=== PATIENT | male | born 1995 | race Hispanic/Latino ===

== ENCOUNTER 2024-06-29 19:51 | Inpatient (IN) | payer OTHER, SELFPAY ==
[2024-06-29 12:56] VITALS: BP 167/94
--- NOTE | 2024-06-29 14:36 | ED.GENMED ---
History of Present Illness
General
Chief Complaint: Abdominal Pain
Source: patient and family (Patients cousin at bedside assisting w/ translation)
Exam Limitations: none
Time Seen by Provider: 06/29/24 14:00
Nursing documentation reviewed up to this point in time: agreed with
History of Present Illness
History of Present Illness:
Patient is a 28-year-old male with history hypertension presenting to the emergency department for evaluation of abdominal pain. Patient reports onset of abdominal pain Thursday which initially started around his umbilicus but it seemed to migrate
down to his right lower quadrant yesterday. He denies any radiation of pain around to his back. He denies any radiation of pain into his groin and denies any testicular pain. He reports a few episodes of vomiting over the past few days and low
appetite. He denies any fever or chills. He denies any urinary symptoms. No history of abdominal surgeries.
No chest pain, shortness of breath, or cough.
Patient denies any history of similar symptoms.
Review of Systems
Review of Systems
Allergies reviewed?: Yes
All Other Systems: ROS reviewed and negative except as documented in HPI and ROS
Phy Exam
Physical Exam
Physical Exam:
Vitals: Hypertensive, otherwise vital signs stable. Afebrile
General: Patient is well appearing, no acute distress. Nontoxic appearing
Skin: Warm and dry, no rashes or lesions
Head: Normocephalic, atraumatic
Eyes: Sclera nonicteric.
Throat: Protecting airway
Neck: Normal ROM, no cervical spine tenderness, no meningismus
Cardiac: Regular rate and rhythm, no murmurs.
Pulm: No respiratory distress. Lungs clear bilaterally
.
Abdomen: Abdomen soft. Moderate tenderness in right lower quadrant McBurney's point. No rebound tenderness or guarding. No CVA tenderness.
Extremities: No evidence of cyanosis or edema
Neuro: AAOx3. Grossly intact.
Psychiatric: Normal affect.
Course
Orders/Labs/Results
Orders:
Orders
06/29/24 14:35
0.9% Sodium Chloride 1000 ml [Nss] 1,000 ml IV BOLUS
Ketorolac [Toradol] 15 mg IV NOW STA
06/29/24 Dinner
NPO
Allow oral meds: Yes
Allow clear liquids: Sips of Clears
NPO with Ice Chips: Yes
06/29/24 15:16
Complete Blood Count/With Diff Urgent
Comprehensive Metabolic Panel Urgent
Lipase Urgent
Urinalysis Reflex To Culture Urgent
Date Specimen was Collected: 06/29/24
Time Specimen was Collected: 15:12
Urine Drug Abuse Screen Urgent
Date Specimen was Collected: 06/29/24
Time Specimen was Collected: 15:12
Urine Microscopic Reflex Cult Urgent
Urine Sodium Urgent
Date Specimen was Collected: 06/29/24
Time Specimen was Collected: 15:12
Comment: ADD ON
Urine Culture Urgent
DEONNA Source: U
Specimen Description:
Date Specimen was Collected: 06/29/24
Time Specimen was Collected: 15:12
06/29/24 16:04
Abdomen/Pelvis wo Contrast CT [CT Abd/pelvis Wo Iv Cont] Urgent
Comment:
Reason For Exam: abdominal pain, ROBERTO
06/29/24 18:20
0.9% Sodium Chloride 1000 ml [Nss] 1,000 ml IV BOLUS
CefTRIAXone [Rocephin] 2,000 mg IV NOW STA
MetroNIDAZOLE 500 MG/100 ML [Flagyl 500 mg] 100 ml IV NOW
06/29/24 19:10
Admit/Transfer Patient As Directed
Co-Sign Provider:
Level of Care: Inpatient admission
Assign to:: Medical/Surgical
Physician / Group: [email or web address]
Diagnosis: ROBERTO, acute appendicitis
Reason for Hospitalization: ROBERTO, acute appendicitis
Expected length of stay greater than two midnights?: Yes
ELOS- Estimated Length of Stay in days: 3
I certify the patient meets the requirements for IP care: Yes
06/29/24 19:12
Code Status As Directed
Resuscitation Status: Full Code
06/29/24 19:16
Basic Metabolic Panel Urgent
Creatine Phosphokinase Urgent
Comment: ADDON
06/29/24 19:28
Add On- LAB Urgent
Tests Added?: CK
06/29/24 20:24
0.9% Sodium Chloride 1000 ml [Nss] 1,000 ml IV 80 mls/hr
Bisacodyl [Dulcolax] 10 mg RECTAL [id number] PRN
Docusate W/Senna [Senokot-S] 1 tablet PO BIDPRN PRN
HYDROmorphone [Dilaudid] 0.5 mg IV Q4HPRN PRN
Polyethylene Glycol Powder [Miralax] 17 grams PO DAILYPRN PRN
06/29/24 20:24
NEPHROLOGY CONSULT Routine
Consulting Provider: Ture Medina
Was physician already notified: Yes
Reason for consult: ROBERTO of unclear origin
Activity As Directed
Activity Level: With Assistance
Intake/ Output As Directed
Frequency: Per unit guidelines
Pneumatic Compression Sleeves As Directed
Type: Knee high
Vital Signs As Directed
Frequency: Per unit guidelines
Weight As Directed
Frequency: Daily
DX Deep Vein Thrombosis Video Routine
06/30/24 06:00
Basic Metabolic Panel IN AM
Complete Blood Count/No Diff IN AM
07/01/24 06:00
Basic Metabolic Panel IN AM
07/02/24 06:00
Basic Metabolic Panel IN AM
07/03/24 06:00
Basic Metabolic Panel IN AM
Abnormal Lab Results
06/29/24 06/29/24
15:16 19:16
RBC 3.88 L 10^6/uL
(4.70-6.10)
Hgb 11.8 L g/dL
(13.0-18.0)
Hct 34.6 L %
(39.0-52.0)
Absolute Neuts (auto) 6.8 H 10^3/uL
(1.4-6.5)
Absolute Monos (auto) 0.7 H 10^3/uL
(0.1-0.6)
Lymphocytes % 17.4 L %
(20.5-51.1)
Chloride 109 H mmol/L 113 H mmol/L
(98-107) (98-107)
Carbon Dioxide 21 L mmol/L 17 L mmol/L
(22-30) (22-30)
BUN 68 H mg/dl 66 H mg/dl
(9-20) (9-20)
Creatinine 7.8 H* mg/dL 7.5 H* mg/dL
(0.7-1.3) (0.7-1.3)
Creatine Kinase 390 H U/L
(55-170)
Ur Occult Blood Reflex 2+ A
(Negative)
Urine Bacteria (Reflex) Moderate A
(Negative)
Urine Albumin (Reflex) 4+ A
(Neg - Trace)
06/29/24 15:16
06/29/24 19:16
Vital Signs
Initial and Last Documented VS:
Initial Vital Signs
Temp Pulse Resp BP Pulse Ox
98.1 F 78 20 167/94 99
06/29/24 12:56 06/29/24 12:56 06/29/24 12:56 06/29/24 12:56 06/29/24 12:56
Last Documented Vital Signs
Temp Pulse Resp BP Pulse Ox
98.6 F 62 18 146/93 98
06/29/24 23:16 06/29/24 23:16 06/29/24 23:16 06/29/24 23:16 06/29/24 23:16
MDM/Problems Addressed
Differential Diagnosis Includes:
Not limited to: Appendicitis, diverticulitis, gastroenteritis, biliary colic, renal colic, etc.
MDM/Problems Addressed:
28 year-old male presenting with two days of right lower abdominal pain associated with anorexia and intermittent vomiting. No fevers or urinary symptoms. No testicular pain. Vitals and physical exam as above. Different differential broad although
patient is tender over McBurney�s point � concern for acute appendicitis. Will obtain basic labs, urinalysis, CT scan abdomen/pelvis with IV contrast. Will give Toradol and IV fluids.
Update: CBC without acute abnormalities. CMP shows acute renal failure with creatinine of 7.8. At this time� patient was bladder scanned, which sh owed no evidence of urinary retention. CT scan was switched to a noncontrast study. Unknown etiology
of renal failure at this time � patient denies any history of this. Will evaluate for a possible obstructive causes on CT scan, other considerations include medication induced although patient denies any recent NSAID use. We�ll hold any further
nephrotoxic agents, including NSAIDs at this time.
Update: CT scan suggestive of acuter uncomplicated appendicitis. No evidence of obstructive uropathy. Started patient on IV Rocephin/Flagyl in ED given PCN allergy. Discussed with general surgery. Plan for OR tomorrow for appendectomy. Patient
admitted to hospitalist for further work up of acute renal failure and nephrology consult. Patient accepted to hospitalist service in stable condition.
Chronic conditions affecting care:
Hypertension
Acute Exacerbation and/or Progression of Chronic Illness:
Acutely hypertensive, acute renal failure
*Radiology
Radiology exam reviewed: radiology read reviewed
*Pulse Oximetry
Patient hypoxic: no
*EKG
Interpreted by ED Provider?: NA
*Director Perioperative Interpretation
Rate: Director Perioperative- N/A
*Critical Care Note
Total Time (30-74mins, 75-104mins- exclusive of procedures): Not Applicable
Patient Management
Discussion with other providers: Hospitalist and Motorized [employer] Commanding Officer (Case discussed with general surgery)
Escalation/DeEscalation of care consider admission/obs:
Admit for acute appendicitis and acute renal failure
ED Attending Note
-
Portions of this chart may have been created with voice recognition software.� Occasional wrong word or��sound alike� substitutions may have occurred due to the inherent limitations of voice recognition software.
Discharge Plan
Departure
Patient Disposition: Admit
Date of Disposition: 06/29/24
Time of Disposition: 18:32
Presentation/result/management discussed w/ accepting MD/DO: Hospitalist
Discharge Problem:
Acute appendicitis, Acute renal failure
Interventions
Interventions:
*Risk Screen - Suicide Last Done: 06/29/24 22:08
*General Assessment Last Done: 06/29/24 12:56
*Neglect/Abuse Screening Last Done: 06/29/24 15:15
*ED- Fall Risk Assessment Last Done: 06/29/24 15:15
*ED COVID-19 Vaccine History Last Done: 06/29/24 22:08
*Nursing Disposition Last Done: 06/29/24 20:10
SI-[facility]turk-Uzijmfmk[facility] Assessment Last Done: 06/29/24 15:15
Discharge Date and Time
Discharge Date/Time: 06/29/24 20:15
[2024-06-29] MEDS: NSS 1000 IV ×3 (15:13→22:21)
[2024-06-29] MEDS: TORADOL 15 MG IV (15:14)
[2024-06-29 15:22] VITALS: BMI 21.8
[2024-06-29 15:32] LABS: Urine Albumin 4+ (Neg - Trace); Urine Bilirubin Negative (Negative); Urine Character Clear (Clear); Urine Color Yellow; Urine Glucose Negative (Negative); Urine Ketone Negative (Negative); Urine Leukocyte Negative (Negative); Urine Nitrite Negative (Negative); Urine Occult Blood 2+ (Negative); Urine Urobilinogen Negative (Neg - 1+)
[2024-06-29 15:35] LABS: % Basophils 0.8 % (0-2); % Eosinophils 3.4 % (0-6); % Immature Granulocytes 0.3 % (0-0.5); % Lymphocytes 17.4 % (20.5-51.1); % Neutrophils 71.1 % (42.2-75.2); Absolute Basophils 0.1 10^3/uL (0-0.2); Absolute Eosinophils 0.3 10^3/uL (0-0.7); Absolute Lymphocytes 1.7 10^3/uL (1.2-3.4); Absolute Monocytes 0.7 10^3/uL (0.1-0.6); Absolute Neutrophils 6.8 10^3/uL (1.4-6.5); Hematocrit 34.6 % (39.0-52.0); Hemoglobin 11.8 g/dL (13.0-18.0); Mean Corp Hgb Conc. 34.1 g/dL (33.0-37.0); Mean Corpuscular Hgb 30.4 pg (27.0-31.0); Mean Corpuscular Volume 89.2 fL (80.0-94.0); Mean Platelet Volume 10.4 fL (7.4-10.4); Nucleated Red Blood Cells % 0 % (-); Platelet Count 223 10^3/uL (130-400); Red Blood Cell Count 3.88 10^6/uL (4.70-6.10); Red Cell Dist. Width 12.6 % (11.5-14.5); White Blood Cell Count 9.6 10^3/uL (4.8-10.8)
[2024-06-29 15:43] VITALS: BP 154/74
[2024-06-29 15:53] LABS: ALT (SGPT) 20 U/L (0-50); AST (SGOT) 17 U/L (17-59); Albumin 4.1 g/dl (3.5-5.0); Alkaline Phosphatase 102 U/L (38-126); Blood Urea Nitrogen 68 mg/dl (9-20); Calcium 9.8 mg/dl (8.4-10.2); Carbon Dioxide 21 mmol/L (22-30); Chloride 109 mmol/L (98-107); Estimated Creatinine Clearance 15 ml/min; Glucose 95 mg/dl (70-99); Lipase 239 U/L (23-300); Potassium 4.5 mmol/L (3.5-5.1); Sodium 141 mmol/L (135-145); Total Bilirubin 0.8 mg/dl (0.2-1.3); Total Protein 7.3 g/dl (6.3-8.2); eGFR 8.94
[2024-06-29 16:18] LABS: Urine Bacteria Moderate (Negative); Urine Red Blood Cell 0-2 /HPF (0-2)
[2024-06-29] MEDS: FLAGYL 500 MG 100 IV (18:30)
--- NOTE | 2024-06-29 18:47 | HPS.HSE ---
Family Physician
-
Family Physician: * NONE
Chief Complaint
-
abdominal pain
History of Present Illness
HPI
28M Non Pashto nut Macedonian speaker pw Cousin Pashto speaker HX HTN seen at ER;
- pw central and Rt lower abdominal pain since Thursday night
- associated with N.
- Vomited once
- HX PCN allergy
- BP 155/75
Admission Labs:
- No urine retention
Cr 7.8
K 4.5
[address] AP wo contrast
- acute appendicitis
- No obstruction
Medical History
Past Medical History
Past Medical History: Reports HTN
Past Surgical History: Reports None
Social History
Tobacco: Non-smoker
Alcohol: Occasional
Family History
Family History: Not pertinent
Allergies / Home Medications
Allergies reflects when Allergies were last updated in [employer].
Home Medications with original date entered in [employer]
Allergy/Medication List:
Allergies
Allergy/AdvReac Type Severity Reaction Status Date / Time
Penicillins Allergy Unknown Verified 06/29/24 12:56
Home Medications
Clortailona 12.5 mg PO DAILY 06/29/24
acetaminophen 325 mg tablet (Tylenol) 650 mg PO Q6HPRN PRN mild pain 06/29/24
atenolol 50 mg tablet 50 mg PO DAILY 06/29/24
felodipine 5 mg tablet,extended release 24 hr 5 mg PO DAILY 06/29/24
Review of Systems
-
Constitutional: Reports No Symptoms
EENT: Reports No Symptoms
Respiratory: Reports No Symptoms
Cardiac: Reports No Symptoms
Abdomen/GI: Reports See HPI, Abdominal Pain, Nausea and Vomiting
: Reports No Symptoms
Musculoskeletal: Reports No Symptoms
Skin: Reports No Symptoms
Neurological: Reports No Symptoms
Endocrine: Reports No Symptoms
Hematologic/Lymphatic: Reports No Symptoms
Psych: Reports No Symptoms
Physical Exam
Vital Signs
Vital Signs
Temp Pulse Resp BP Pulse Ox
98.4 F 68 16 154/74 100
06/29/24 15:43 06/29/24 15:43 06/29/24 15:43 06/29/24 15:43 06/29/24 15:43
Physical Exam
General: Well Developed, Well Nourished and No Apparent Distress
HEENT: NormoCephalic and Atraumatic; No Moist mucous membranes (dry OM )
Respiratory: Clear
Cardiac: S1/S2 and Regular Rhythm; No Murmur or Rub
GI: Soft, Non Tender, Non Distended and Normal Bowel Sounds; No Organomegaly
Rectal: Deferred by Provider
Musculoskeletal: No Clubbing, No Cyanosis and No Edema
Skin: No Rash
Neuro: Nonfocal/grossly intact
Psych: Calm
Laboratory Results
-
06/29/24 15:16
Laboratory Results
Total Bilirubin 0.8 mg/dl (0.2-1.3) 06/29/24 15:16
AST 17 U/L (17-59) 06/29/24 15:16
ALT 20 U/L (0-50) 06/29/24 15:16
Alkaline Phosphatase 102 U/L (38-126) 06/29/24 15:16
Lipase 239 U/L (23-300) 06/29/24 15:16
Data Reviewed
-
CT Scan: Report Reviewed by me
Lab Data: Labs Reviewed by me
Impression/Plan
-
Vital Signs
Temp Pulse Resp BP Pulse Ox
98.4 F 68 16 154/74 100
06/29/24 15:43 06/29/24 15:43 06/29/24 15:43 06/29/24 15:43 06/29/24 15:43
Labs
06/29/24
15:16
WBC 9.6
Hgb 11.8 L
Potassium 4.5
Chloride 109 H
Carbon Dioxide 21 L
BUN 68 H
Creatinine 7.8 H*
Estimated Creat Clear 15
eGFR 8.94
AST 17
ALT 20
Alkaline Phosphatase 102
Ur Occult Blood Reflex 2+ A
Urine RBC 0-2
Urine Bacteria (Reflex) Moderate A
Urine Albumin (Reflex) 4+ A
CT Abd/pelvis Wo Iv Cont
- Findings suggestion acute appendicitis. No evidence of perforation or abscess formation.
- Findings suggestion benign bilateral adrenal hyperplasia
- Moderate fecal material throughout the colon.
- Mild diffuse bladder wall thickening.
- This can be seen with cystitis or bladder outlet obstruction.
NO PRIOR hospitalist admission:
ASSESSMENT & PLAN
ROBERTO of unclear etiology
- Normal K
- HCO3 21
- Non AG MA 10
- No bladder retention
- No CT evidence of obstruction
- Exposure to NSAID
- Ur Na
- Ur Eosinophils
- Hold CLORTAILONA ( Diuretics ? )
- IV NS @ 80 /H
- Trend Cr
- Renal consulted
CT suggest acute appendicitis
HX PCN allergy
- NPO for OR in AM
- Empiric IV CFTZ and Metronidazole
- PRN allergies
Essential HTN
- IV Hydralazine PRN for SBP > 160. DBP > 110
DVT Px: SCD
Full code
IP MS
[2024-06-29 19:00] VITALS: BP 152/87
[2024-06-29] MEDS: ROCEPHIN 2000 MG IV (19:11)
[2024-06-29 19:45] LABS: Blood Urea Nitrogen 66 mg/dl (9-20); Calcium 9.2 mg/dl (8.4-10.2); Carbon Dioxide 17 mmol/L (22-30); Chloride 113 mmol/L (98-107); Estimated Creatinine Clearance 16 ml/min; Glucose 84 mg/dl (70-99); Potassium 4.2 mmol/L (3.5-5.1); Sodium 139 mmol/L (135-145); eGFR 9.37
[2024-06-29 19:50] LABS: Creatine Phosphokinase 390 U/L (55-170)
[2024-06-29 20:00] VITALS: BP 162/79
[2024-06-29 22:07] LABS: Amphetamines Negative (Negative); Barbiturates Negative (Negative); Benzodiazepines Negative (Negative); Buprenorphine Negative (Negative); Cocaine Negative (Negative); Marijuana Negative (Negative); Methadone Negative (Negative); Methamphetamines Negative (Negative); Opiates Negative (Negative); Phencyclidine Negative (Negative); Tricyclic Antidepressants Negative (Negative)
[2024-06-29 22:13] LABS: Urine Sodium 39 mmol/L (30-90)
[2024-06-29] MEDS: DILAUDID 0.5 MG IV (22:22)
[2024-06-29 23:16] VITALS: BP 146/93
[2024-06-30] VITALS (11 sets, daily range): BP systolic 112–143; BP diastolic 61–89; BMI 21.1
[2024-06-30 07:02] LABS: Blood Urea Nitrogen 66 mg/dl (9-20); Carbon Dioxide 16 mmol/L (22-30); Chloride 114 mmol/L (98-107); Estimated Creatinine Clearance 15 ml/min; Glucose 75 mg/dl (70-99); Potassium 4.8 mmol/L (3.5-5.1); Sodium 140 mmol/L (135-145)
[2024-06-30 07:23] LABS: Hematocrit 30.6 % (39.0-52.0); Hemoglobin 10.3 g/dL (13.0-18.0); Mean Corp Hgb Conc. 33.7 g/dL (33.0-37.0); Mean Corpuscular Hgb 30.7 pg (27.0-31.0); Mean Corpuscular Volume 91.1 fL (80.0-94.0); Mean Platelet Volume 10.7 fL (7.4-10.4); Platelet Count 170 10^3/uL (130-400); Red Blood Cell Count 3.36 10^6/uL (4.70-6.10); Red Cell Dist. Width 12.6 % (11.5-14.5); White Blood Cell Count 7.4 10^3/uL (4.8-10.8)
[2024-06-30 08:15] LABS: Anti Streptolysin Negative (Negative)
[2024-06-30 09:40] LABS: Complement C3 124 mg/dl (88-165)
--- NOTE | 2024-06-30 11:43 | W.PN.HOSP.TC ---
Today's Communication/Plan
-
Continue IVF
Assessment / Plan
Assessment / Plan
Impression:
Patient is 28 years old with history of hypertension who came to the ER with abdominal pain found to have uncomplicated acute appendicitis but also acute renal failure, unknown baseline creatinine.
CT abdomen pelvis shows:
Findings suggestion acute appendicitis. No evidence of perforation or abscess formation.
Findings suggestion benign bilateral adrenal hyperplasia
Moderate fecal material throughout the colon.
Mild diffuse bladder wall thickening. This can be seen with cystitis or bladder outlet obstruction
Patient admitted, consult for surgery and nephrology.
Assessment/plan:
Acute renal failure.
Unknown baseline.
Normal potassium and bicarb was 21 on presentation.
Today bicarb is 16
Creatinine at 7.9
Nephrology consulted.
Continue IV fluid hydration (consider sodium bicarb)
No indication for acute dialysis currently.
Updated patient and his cousin at bedside who provide translation.
Metabolic acidosis.
Secondary to renal failure.
IVF
Acute uncomplicated appendicitis
CT abdomen and pelvis showed:
Findings suggestion acute appendicitis. No evidence of perforation or abscess formation.
Surgery consulted.
OR once stable
Normocytic anemia.
Follow-up hemoglobin.
Unknown baseline.
Hypertension.
Hold clortailona (hydrochlorothiazide)
May resume atenolol.
Consider adding Norvasc
CODE STATUS: Full code
DVT prophylaxis: SCDs
Diet: NPO
Family communication: Discussed with family at bedside
Disposition: Continue IVF.
Total time spent on today's encounter was 65 minutes which included time spent in counseling the patient/family regarding diagnosis and treatment plan as listed above, goals of care, and symptom management. Case was discussed with nursing staff,
specialists, and care coordinators/case management. All labs and imaging personally reviewed by me. Remainder the time spent in detailed review of previous records, lab data, imaging, and other medical provider documentation.
Anticipated Discharge: > 48 hours
Subjective/Interval History
-
Date of Service: June 30, 2024
Patient seen and examined at bedside, cousin at bedside provide translation.
Patient denies any chest pain or shortness of breath, still with mild mid abdominal pain, no nausea, no vomiting, no diarrhea or constipation.
Objective Data
-
Labs:
Laboratory Results
06/30/24
05:57
WBC 7.4
Hgb 10.3 L
Hct 30.6 L
Plt Count 170 D
Sodium 140
Potassium 4.8
Chloride 114 H
Carbon Dioxide 16 L
BUN 66 H
Creatinine 7.9 H*
Glucose 75
Calcium 9.0
Vital Signs:
Vital Signs
Temp Pulse Resp BP Pulse Ox
97.7 F 62 18 139/87 100
06/30/24 07:25 06/30/24 07:25 06/30/24 07:25 06/30/24 07:25 06/30/24 07:25
I&O
06/29/24 06/30/24 07/01/24
06:59 06:59 06:59
Intake Total 720 / 720
Balance 720 / 720
Physical Exam
-
General: Well Developed, Well Nourished, No Apparent Distress and Comfortable
HEENT: Normocephalic, Atraumatic, Moist Mucous Membranes, No Ptosis, PERRLA and Nose Appears Normal
Respiratory: Clear to Auscultation and Non Labored Respirations
Cardiac: Regular Rhythm and S1/S2
Breast: Deferred by me
GI: Soft, Nondistended, Normal Bowel Sounds and Tender (mild)
Genito-urinary: No Costovertebral Tender
Musculoskeletal: No Clubbing, No Cyanosis and No Edema
Skin: Warm
Neuro: Awake, Alert, Oriented, AO x 3 and No Motor Deficits
Psych: Calm
Data Reviewed
-
Diagnostic Radiology: Image personally visualized and interpreted and Report Reviewed by me
CT Scan: Image personally visualized and interpreted and Report Reviewed by me
Ultrasound: Image personally visualized and interpreted and Report Reviewed by me
MRI: Image personally visualized and interpreted and Report Reviewed by me
Medical Tests (Nuc Med, Echo etc): Image personally visualized and interpreted and Report Reviewed by me
Labs: Labs Reviewed by me
Old Records: Reviewed
--- NOTE | 2024-06-30 11:59 | CON.GS ---
Consultation
-
Date/Time Consultation Performed: 06/30/24
Requesting Provider: Kalen
Performing Provider: Khari
Reason for Consultation: Acute appendicitis
Medical History
-
Chief Complaint: Abd pain
History of Present Illness:
28M with acute onset abd pain, periumbilical, nonradiating, severe and progressive, waxed and waned initially now more constant. Denies changes to urine/stool Denies f/c. Uzbek speaker, cousin present and helps with translation.
Past Medical History
Past Medical History: HTN
Past Surgical History: Reviewed & Noncontributory
Social History
Tobacco: Non-Smoker
Alcohol: Occasional
Drug: None
Personal: Single
Family History
Family History: Reviewed & Noncontributory
Allergies / Home Medications
Allergy/AdvReac Type Severity Reaction Status Date / Time
Penicillins Allergy Unknown Verified 06/29/24 12:56
�Medication �Instructions �Recorded �Confirmed �Type
Clortailona 12.5 mg PO DAILY 06/29/24 06/29/24 History
acetaminophen 325 mg tablet 650 mg PO Q6HPRN PRN mild pain 06/29/24 06/29/24 History
(Tylenol)
atenolol 50 mg tablet 50 mg PO DAILY 06/29/24 06/29/24 History
felodipine 5 mg tablet,extended 5 mg PO DAILY 06/29/24 06/29/24 History
release 24 hr
Review of Systems
-
A 10 point review of systems was completed, and was negative except as per HPI.
Physical Exam
Vital Signs
Temp Pulse Resp BP Pulse Ox
97.7 F 62 18 139/87 100
06/30/24 07:25 06/30/24 07:25 06/30/24 07:25 06/30/24 07:25 06/30/24 07:25
06/29/24 06/30/24 07/01/24
06:59 06:59 06:59
Actual Weight 74.644 kg
Body Mass Index (BMI) 21.1
Lab Results
06/30/24 05:57
06/30/24 05:57
WBC 7.4 10^3/uL (4.8-10.8) 06/30/24 05:57
Hgb 10.3 g/dL (13.0-18.0) L 06/30/24 05:57
Hct 30.6 % (39.0-52.0) L 06/30/24 05:57
Plt Count 170 10^3/uL (130-400) D 06/30/24 05:57
Abs Immat Gran (auto) 0.0 10^3/uL (0-0.05) 06/29/24 15:16
Neutrophils % 71.1 % (42.2-75.2) 06/29/24 15:16
Physical Exam
General: No Apparent Distress
GI: Soft, Non Distended and Tender (ttp mostly suprapubic region)
Skin: Warm and Dry
Neuro: AO x 3
Psych: Calm
Data Reviewed
-
CT Scan: Image Personally Visualized and interpreted, Report Reviewed by me, Discussed with Physician, Discussed with Patient and Discussed with Family
Labs: Labs Reviewed by me, Discussed with Physician, Discussed with Patient and Discussed with Family
Assessment / Plan
-
28M with acute uncomplicated appendicitis and concurrent ROBERTO
AFVSS, ttp to suprapubic area
No leukocytosis, no shift, Cr 7.9 and trending up, UA with bacteriuria
CT with acutely inflamed appendix, no fecalith, no perforation, no abscess
Plan:
IV abx
Nephrology consult
Surgical planning pending renal w/u
DVT ppx
Ambulate
All other care as per primary team
Will follow
[2024-06-30 12:01] LABS: Protein/creatinine Ratio 3.7; Urine Protein 514 mg/dl
[2024-06-30 12:12] LABS: Body Fluid for Eosinophils No Eosinophils seen
--- NOTE | 2024-06-30 12:53 | W.CON.NEPH ---
Consultation
-
Date/Time Consultation Requested: 06/30/2024 9 AM
Date/Time Consultation Performed: 06/30/2024 12 PM
Requesting Provider: Dr. Higuera
Performing Provider: Dr. Medina
Reason for Consultation: Elevated creatinine
Medical History
-
Chief Complaint: Abdominal pain
History of Present Illness:
This is a 28-year-old gentleman who has come from [place] recently. He has had no significant healthcare issues previously and therefore had not really seen physicians. He does not speak Occitan and translation is offered by a cousin. About 1 year
ago he had developed abdominal pain and had seen a physician in [place]. Nothing had come from the pain but he was noted to be hypertensive. He was referred to cardiology who he had seen once. He was prescribed a triple regimen of Tenoretic and
felodipine. He was told to return if he did not feel better. He did feel better and so never had follow-up. He has never had blood work even with the incident 1 year ago. Prior to admission he developed acute onset of abdominal pain in the
periumbilical and right lower quadrant area. This was on and off and given the severity of the pain you come to the emergency room for evaluation. CT scan without contrast demonstrated an inflamed appendix. Blood work however had shown elevated
creatinine at 7.9 with significant abnormal urine. He also had metabolic acidosis
Past Medical History
Hypertension
Social History
Tobacco: Non-Smoker
Alcohol: Occasional
Family History
No known CKD
Allergies / Home Medications
Allergy/AdvReac Type Severity Reaction Status Date / Time
Penicillins Allergy Unknown Verified 06/29/24 12:56
�Medication �Instructions �Recorded �Confirmed �Type
Clortailona 12.5 mg PO DAILY 06/29/24 06/29/24 History
acetaminophen 325 mg tablet 650 mg PO Q6HPRN PRN mild pain 06/29/24 06/29/24 History
(Tylenol)
atenolol 50 mg tablet 50 mg PO DAILY 06/29/24 06/29/24 History
felodipine 5 mg tablet,extended 5 mg PO DAILY 06/29/24 06/29/24 History
release 24 hr
Review of Systems
-
Abdominal pain as above
All other systems: Negative unless noted
Physical Exam
Vital Signs
Vital Signs
Temp Pulse Resp BP Pulse Ox
97.7 F 62 18 139/87 100
06/30/24 07:25 06/30/24 07:25 06/30/24 07:25 06/30/24 07:25 06/30/24 07:25
Lab Results
WBC 7.4 10^3/uL (4.8-10.8) 06/30/24 05:57
RBC 3.36 10^6/uL (4.70-6.10) L 06/30/24 05:57
Hgb 10.3 g/dL (13.0-18.0) L 06/30/24 05:57
Hct 30.6 % (39.0-52.0) L 06/30/24 05:57
Plt Count 170 10^3/uL (130-400) D 06/30/24 05:57
Sodium 140 mmol/L (135-145) 06/30/24 05:57
Potassium 4.8 mmol/L (3.5-5.1) 06/30/24 05:57
Chloride 114 mmol/L (98-107) H 06/30/24 05:57
Carbon Dioxide 16 mmol/L (22-30) L 06/30/24 05:57
BUN 66 mg/dl (9-20) H 06/30/24 05:57
Creatinine 7.9 mg/dL (0.7-1.3) H* 06/30/24 05:57
eGFR 8.80 06/30/24 05:57
Glucose 75 mg/dl (70-99) 06/30/24 05:57
Calcium 9.0 mg/dl (8.4-10.2) 06/30/24 05:57
Albumin 4.1 g/dl (3.5-5.0) 06/29/24 15:16
CT abdomen and pelvis without contrast 06/29/2024
IMPRESSION: Findings suggestion acute appendicitis. No evidence of perforation or abscess formation.
Findings suggestion benign bilateral adrenal hyperplasia
Moderate fecal material throughout the colon.
Mild diffuse bladder wall thickening. This can be seen with cystitis or bladder outlet obstruction.
Physical Exam
Patient is awake alert oriented and in no distress. Mood and affect were pleasant, insight and judgment were good. Pupils are equal round and reactive to light, extraocular movements are intact, sclera were anicteric. Hearing was normal, ears and
nose are intact. Oropharynx was clear. Neck was supple with trachea midline and no thyromegaly. Heart was regular rate and rhythm without rubs. Lower extremities without edema. Lungs were clear to auscultation bilaterally and with normal
excursion. Abdomen was soft, tender to palpation in periumbilical and right lower quadrant, with normal active bowel sounds, and no hepatosplenomegaly. Skin was without rash and with normal turgor.
Data Reviewed
-
CT Scan: Report Reviewed by me
Labs: Labs Reviewed by me
Assessment/Plan
-
Assessment
Acute appendicitis
Elevated creatinine/ROBERTO
Metabolic acidosis
Proteinuria nephrotic range
Hematuria
Hypertension
Plan
Serologic workup ordered
I suspect that this may be chronic kidney disease rather than acute kidney injury, however there could be an acute component given the acute appendicitis but I suspect that he would be mild contribution
He will require kidney biopsy though this should not be done with acute appendicitis
At this point I would consider him to be chronic kidney disease likely stage V for all intents and purposes in determining a plan for his appendicitis.
He should be able to undergo surgery from a renal standpoint in this vein
May continue IV fluids for now
--- NOTE | 2024-06-30 13:52 | W.PN.UPDATE ---
Update Note
Progress Note Update
Seern and evaluated by Nephrology. Likely CKD5, less likely ROBERTO. Cleared for surgery from renal standpoint. Plan for OR today for lap appy. D/w pt and cousin in detail. Informed consent obtained.
--- NOTE | 2024-06-30 13:56 | CM ---
Patient seen at bedside with cousin on [address] Patient stated via cousin that he lives with his friends in an apartment first floor. Patient was independent of ADL's and IADL's. Patient cousin translated that patient has no PCP and uses the [facility] on
[address] Patient cousin indicated that they would follow up with [facility] and cousin was aware of process of application. CM will continue to follow for discharge planning needs.
Plan; pending medical treatment plan; possible home with no needs
--- NOTE | 2024-06-30 15:13 | W.IMMPOSTOP ---
Surgical Immed Post Op Note
-
Primary Surgeon: Khari
Pre-op Diagnosis: Acute appendicitis
Post-op Diagnosis: Same
Procedure Performed: Laparoscopic appendectomy
Anesthesia Type: GETA
Specimen / Cultures: Appendix
Estimated Blood Loss: 10cc
Complications: None immediate
Operative Findings: Inflamed nonperforated appendix, no pelvic fluid
--- NOTE | 2024-06-30 15:54 | OR.RPT ---
Operative Report
Operative Report
Primary Surgeon: Khari
Pre-op Diagnosis: Acute appendicitis
Post-op Diagnosis: Same
Procedure Performed: Laparoscopic appendectomy
Anesthesia Type: GETA
Specimen / Cultures: Appendix
Estimated Blood Loss: 10cc
Complications: None immediate
Operative Findings: Inflamed nonperforated appendix, no pelvic fluid
Date of Surgery: 06/30/24
Indications: This 28M developed right lower quadrant abdominal pain and on workup was found to have acute appendicitis. He was also found to have elevated creatinine and Nephrology was consulted. They diagnosed CKD5 and cleared him for surgery from
renal standpoint. Laparoscopic appendectomy was elected.
Description of procedure: The patient was placed on the operating table in the supine position. General anesthesia was induced. A time-out was completed verifying correct patient, procedure, site, positioning, and special equipment prior to
beginning this procedure. An orogastric tube was placed. The abdomen was prepped and draped in the usual sterile fashion. A stab incision was made in left upper quadrant and the Veress needle was inserted. Proper position was confirmed by aspiration
and saline meniscus test. The abdomen was insufflated with carbon dioxide to a pressure of 12 mmHg. The patient tolerated insufflation well.
A 5mm optical trocar was then inserted at the left lower quadrant. The laparoscope was inserted and the abdomen inspected. No injuries from initial trocar placement or Veress needle insertion were noted. Additional trocars were then inserted in the
following locations: a 12-mm trocar at the umbilicus and a 5-mm trocar midline in the suprapubic space. The abdomen was inspected and no abnormalities were found. The table was placed in the Trendelenburg position with the right side up. The
appendix was notable inflamed without signs of gangrene or perforation. The tip of the appendix was gently grasped with an atraumatic grasper and retracted toward the patient�s feet and abdominal wall. Omental adhesions were teased away bluntly from
the appendix. This maneuver exposed the appendiceal blood supply which was controlled with the voyant device. Following this, a laparoscopic linear cutting stapler with a 45mm vaughan load was deployed and used to transect the appendix at its base. The
appendix was placed in an endoscopic retrieval bag, removed through the umbilical port, and passed off the table as a specimen.
We then turned our attention to the staple line, which was noted to be hemostatic. Pelvis inspected, no free fluid identified. The umbilical trocar site was closed at the fascial level laparoscopically with 2-0 PDS under direct vision. Secondary
trocars were removed under direct vision and noted to be hemostatic. The laparoscope was withdrawn and the abdomen was allowed to collapse. The skin was closed with subcuticular sutures of 4-0 monocryl and topical skin adhesive. The orogastric tube
was removed.
The patient tolerated the procedure well and was taken to the postanesthesia care unit in stable condition.
[2024-06-30] MEDS: TENORMIN 50 MG PO (17:12)
[2024-06-30] MEDS: SODIUM BICARBONATE 1150 MEQ IV ×2 (17:13→21:51)
[2024-06-30] MEDS: NSS IV (17:26)
[2024-07-01] MEDS: MYLICON 80 MG PO (00:14)
[2024-07-01 03:08] VITALS: BP 122/66
[2024-07-01 06:00] VITALS: BMI 22.0
[2024-07-01 07:07] LABS: Hematocrit 26.9 % (39.0-52.0); Hemoglobin 9.4 g/dL (13.0-18.0); Mean Corp Hgb Conc. 34.9 g/dL (33.0-37.0); Mean Corpuscular Hgb 30.6 pg (27.0-31.0); Mean Corpuscular Volume 87.6 fL (80.0-94.0); Mean Platelet Volume 11.5 fL (7.4-10.4); Platelet Count 179 10^3/uL (130-400); Red Blood Cell Count 3.07 10^6/uL (4.70-6.10); Red Cell Dist. Width 12.2 % (11.5-14.5); White Blood Cell Count 6.6 10^3/uL (4.8-10.8)
[2024-07-01 07:15] VITALS: BP 138/81
[2024-07-01 07:39] LABS: Blood Urea Nitrogen 72 mg/dl (9-20); Calcium 8.6 mg/dl (8.4-10.2); Carbon Dioxide 20 mmol/L (22-30); Chloride 108 mmol/L (98-107); Estimated Creatinine Clearance 16 ml/min; Glucose 132 mg/dl (70-99); Potassium 4.4 mmol/L (3.5-5.1); Sodium 137 mmol/L (135-145); eGFR 9.52
--- NOTE | 2024-07-01 08:12 | W.PN.GS2 ---
Today's Communication / Plan
-
regular diet
Assessment / Plan
-
28 yo male who presented with acute appendicitis now POD #1 lap appi
AFVSS
No leukocytosis
Cr markedly elevated, nephrology following
Doing well from surgical standpoint
--Continue regular diet
--No need for further abx from surgical standpoint
--OOB/Ambulate/Ok to shower
--Analgesics prn, added Tyelnol/oxycodone
--SCDs for VTE ppx
Surgery to follow peripherally, please call with questions/concerns. Outpatient follow up in 2-4 weeks. Updated d/c instructions
Subjective Data
-
Date of Service: July 01, 2024
Patient seen and examined at bedside. Family interpreting at patient's request. Denies n/v. Tolerating diet. Passing flatus, no BM as of yet. Some soreness at incisions.
Objective Data
-
Intake and Output
06/30/24 07/01/24 07/02/24
06:59 06:59 06:59
Intake Total 720 / 720 200 / 200
Balance 720 / 720 200 / 200
Intake:
IV fluids (Total) 720 / 720 200 / 200
NSS 200 / 200
Other:
Number of approximated MODERATE 3
amounts of urine
Vital Signs
Temp Pulse Resp BP Pulse Ox
98.4 F 70 17 122/66 98
07/01/24 03:08 07/01/24 03:08 07/01/24 03:08 07/01/24 03:08 07/01/24 03:08
Lab Results
07/01/24 05:37
07/01/24 05:37
Calcium 8.6 mg/dl (8.4-10.2) 07/01/24 05:37
Total Bilirubin 0.8 mg/dl (0.2-1.3) 06/29/24 15:16
AST 17 U/L (17-59) 06/29/24 15:16
ALT 20 U/L (0-50) 06/29/24 15:16
Alkaline Phosphatase 102 U/L (38-126) 06/29/24 15:16
Total Protein 7.3 g/dl (6.3-8.2) 06/29/24 15:16
Albumin 4.1 g/dl (3.5-5.0) 06/29/24 15:16
Physical Exam
-
NAD
ABD soft, minimal distention, mild incisional tenderness
Incisions clear, dry, intact
[2024-07-01] MEDS: TENORMIN 50 MG PO (08:31)
[2024-07-01] MEDS: SODIUM BICARBONATE 1150 MEQ IV ×2 (08:31→18:30)
[2024-07-01] MEDS: ROXICODONE 5 MG PO (08:32)
--- NOTE | 2024-07-01 10:49 | W.PN.NEPH.PH ---
Today's Communication / Plan
-
follow bmp
can d/c IVFs after current bag completed
Assessment/Plan
-
Assessment
Acute appendicitis
Elevated creatinine/ROBERTO
Metabolic acidosis
Proteinuria nephrotic range
Hematuria
Hypertension
Plan
Creatinine at 7.4 and gradual improvement of metabolic acidosis with alkalized IV fluid
No acute requirement for dialysis at this time
3.7 g of proteinuria
Blood pressure controlled on atenolol
Urine output not recorded
Status post appendectomy
Serologic workup ordered
I suspect that this may be chronic kidney disease rather than acute kidney injury, however there could be an acute component given the acute appendicitis but I suspect that he would be mild contribution
He will require kidney biopsy though this should not be done with acute appendicitis
At this point I would consider him to be chronic kidney disease likely stage V
-
-
Date of Service: July 01, 2024
CC / HPI / ROS
-
Chief Complaint:
ROBERTO/CKD
History of Present Illness:
Creatinine at 7.4
Metabolic acidosis improving with alkaline IV fluid
Hemodynamically stable on atenolol
Status post appendectomy 06/30/2024
Review of Systems:
Nonoliguric no chest pain or shortness of breath
Some minor postoperative abdominal pain
Labs
-
Labs:
WBC 6.6 10^3/uL (4.8-10.8) 07/01/24 05:37
RBC 3.07 10^6/uL (4.70-6.10) L 07/01/24 05:37
Hgb 9.4 g/dL (13.0-18.0) L 07/01/24 05:37
Hct 26.9 % (39.0-52.0) L 07/01/24 05:37
Plt Count 179 10^3/uL (130-400) 07/01/24 05:37
Sodium 137 mmol/L (135-145) 07/01/24 05:37
Potassium 4.4 mmol/L (3.5-5.1) 07/01/24 05:37
Chloride 108 mmol/L (98-107) H 07/01/24 05:37
Carbon Dioxide 20 mmol/L (22-30) L 07/01/24 05:37
BUN 72 mg/dl (9-20) H 07/01/24 05:37
Creatinine 7.4 mg/dL (0.7-1.3) H* 07/01/24 05:37
eGFR 9.52 07/01/24 05:37
Glucose 132 mg/dl (70-99) H 07/01/24 05:37
Calcium 8.6 mg/dl (8.4-10.2) 07/01/24 05:37
Albumin 4.1 g/dl (3.5-5.0) 06/29/24 15:16
Physical Exam
-
Vital Signs:
Vital Signs
Temp Pulse Resp BP Pulse Ox
98.6 F 65 14 138/81 98
07/01/24 07:15 07/01/24 07:15 07/01/24 07:15 07/01/24 07:15 07/01/24 07:15
Cardiovascular:: Regular rate and rhythm
Respiratory:: Bilateral: CTA
Lung Excursion:: Normal
Abdomen:: Soft and Tender
Bowel Sounds:: Decreased
Extremity Edema:: None: Bilateral:
Heredia Catheter: No
[2024-07-01 11:19] VITALS: BP 133/80
--- NOTE | 2024-07-01 11:32 | W.PN.HOSP.TC ---
Today's Communication/Plan
-
Monitor kidney function
Assessment / Plan
Assessment / Plan
Impression:
Patient is 28 years old with history of hypertension who came to the ER with abdominal pain found to have uncomplicated acute appendicitis but also acute renal failure, unknown baseline creatinine.
CT abdomen pelvis shows:
Findings suggestion acute appendicitis. No evidence of perforation or abscess formation.
Findings suggestion benign bilateral adrenal hyperplasia
Moderate fecal material throughout the colon.
Mild diffuse bladder wall thickening. This can be seen with cystitis or bladder outlet obstruction
Patient admitted, consult for surgery and nephrology.
Status post appendectomy.
Nephrology believes this is probably chronic kidney disease stage V.
Assessment/plan:
Acute renal failure.
Possible chronic kidney disease stage V
Unknown baseline.
Normal potassium and bicarb was 21 on presentation.
Bicarb dropped to 16, improved again after bicarb
Creatinine slowly trending down to 7.4
Nephrology consulted. Possible CKD stage V
Discontinue IV fluid and monitor kidney function.
Patient may require renal biopsy.
Metabolic acidosis.
Resolved
Acute uncomplicated appendicitis
Seen by surgery, status post appendectomy
Normocytic anemia.
Follow-up hemoglobin.
Unknown baseline.
Hypertension.
Hold clortailona (hydrochlorothiazide)
resume atenolol.
Consider adding Norvasc
CODE STATUS: Full code
DVT prophylaxis: SCDs
Diet: Regular
Family communication: Discussed with family at bedside
Disposition: Continue IVF.
Total time spent on today's encounter was 65 minutes which included time spent in counseling the patient/family regarding diagnosis and treatment plan as listed above, goals of care, and symptom management. Case was discussed with nursing staff,
specialists, and care coordinators/case management. All labs and imaging personally reviewed by me. Remainder the time spent in detailed review of previous records, lab data, imaging, and other medical provider documentation.
Anticipated Discharge: 24 - 48 hours
Subjective/Interval History
-
Date of Service: July 01, 2024
Patient seen and examined at bedside, cousin at bedside providing translation, denies any chest pain or shortness of breath, complaining of abdominal pain at the site of surgery.
Objective Data
-
Labs:
Laboratory Results
07/01/24
05:37
WBC 6.6
Hgb 9.4 L
Hct 26.9 L
Plt Count 179
Sodium 137
Potassium 4.4
Chloride 108 H
Carbon Dioxide 20 L
BUN 72 H
Creatinine 7.4 H*
Glucose 132 H
Calcium 8.6
Vital Signs:
Vital Signs
Temp Pulse Resp BP Pulse Ox
98.2 F 60 14 133/80 97
07/01/24 11:19 07/01/24 11:19 07/01/24 11:19 07/01/24 11:19 07/01/24 11:19
I&O
06/30/24 07/01/24 07/02/24
06:59 06:59 06:59
Intake Total 720 / 720 200 / 200
Balance 720 / 720 200 / 200
Physical Exam
-
General: Well Developed, Well Nourished, No Apparent Distress and Comfortable
HEENT: Normocephalic, Atraumatic, Moist Mucous Membranes, No Ptosis, PERRLA and Nose Appears Normal
Respiratory: Clear to Auscultation and Non Labored Respirations
Cardiac: Regular Rhythm and S1/S2
Breast: Deferred by me
GI: Soft, Nondistended, Normal Bowel Sounds and Tender (At site of surgery)
Genito-urinary: No Costovertebral Tender
Musculoskeletal: No Clubbing, No Cyanosis and No Edema
Skin: Warm
Neuro: Awake, Alert, Oriented, AO x 3 and No Motor Deficits
Psych: Calm
Data Reviewed
-
Diagnostic Radiology: Image personally visualized and interpreted and Report Reviewed by me
CT Scan: Image personally visualized and interpreted and Report Reviewed by me
Ultrasound: Image personally visualized and interpreted and Report Reviewed by me
MRI: Image personally visualized and interpreted and Report Reviewed by me
Medical Tests (Nuc Med, Echo etc): Image personally visualized and interpreted and Report Reviewed by me
Labs: Labs Reviewed by me
Old Records: Reviewed
--- NOTE | 2024-07-01 14:25 | CM ---
CM following re: discharge planning.
Reviewed pt's chart.
Per CM note yesterday pt is independent with ADL and IADL, lives with a friend, has no insurance and pt will followup at [facility].
[facility].
D/C plan: home with anticipated no needs and will follow up with [facility] clinic.
CM will follow with discharge plan updates as needed.
[2024-07-01 15:10] VITALS: BP 130/77
[2024-07-01 19:29] VITALS: BP 135/80
[2024-07-01 23:05] VITALS: BP 142/91
[2024-07-02 05:23] LABS: ANA, IgG Reflex to HEp-2 None Detected (None Detected)
[2024-07-02 07:25] VITALS: BP 153/94
[2024-07-02 07:42] LABS: Blood Urea Nitrogen 73 mg/dl (9-20); Calcium 8.9 mg/dl (8.4-10.2); Carbon Dioxide 26 mmol/L (22-30); Chloride 105 mmol/L (98-107); Estimated Creatinine Clearance 16 ml/min; Glucose 92 mg/dl (70-99); Sodium 140 mmol/L (135-145); eGFR 9.08
[2024-07-02] MEDS: TENORMIN 50 MG PO (08:09)
[2024-07-02] MEDS: TYLENOL 1000 MG PO (08:09)
[2024-07-02] MEDS: NORVASC 5 MG PO (08:09)
--- NOTE | 2024-07-02 11:13 | W.PN.HOSP.TC ---
Today's Communication/Plan
-
biopsy pending
Assessment / Plan
Assessment / Plan
Impression:
Patient is 28 years old with history of hypertension who came to the ER with abdominal pain found to have uncomplicated acute appendicitis but also acute renal failure, unknown baseline creatinine.
CT abdomen pelvis shows:
Findings suggestion acute appendicitis. No evidence of perforation or abscess formation.
Findings suggestion benign bilateral adrenal hyperplasia
Moderate fecal material throughout the colon.
Mild diffuse bladder wall thickening. This can be seen with cystitis or bladder outlet obstruction
Patient admitted, consult for surgery and nephrology.
Status post appendectomy.
Nephrology believes this is probably chronic kidney disease stage V.
Plan for renal biopsy.
Assessment/plan:
Acute renal failure.
Possible chronic kidney disease stage V
Unknown baseline.
Normal potassium and bicarb was 21 on presentation.
Bicarb dropped to 16, improved again after bicarb
Creatinine slowly trending down to 7.4
Nephrology consulted. Possible CKD stage V
Discontinue IV fluid and monitor kidney function.
Patient may require renal biopsy while inpatient.
Possible next week.
Metabolic acidosis.
Resolved
Acute uncomplicated appendicitis
Seen by surgery, status post appendectomy
Normocytic anemia.
Follow-up hemoglobin.
Unknown baseline.
Hypertension.
Hold clortailona (hydrochlorothiazide)
resume atenolol.
added Norvasc
CODE STATUS: Full code
DVT prophylaxis: SCDs
Diet: Regular
Family communication: Discussed with family at bedside
Disposition: kidney biopsy pending
Total time spent on today's encounter was 65 minutes which included time spent in counseling the patient/family regarding diagnosis and treatment plan as listed above, goals of care, and symptom management. Case was discussed with nursing staff,
specialists, and care coordinators/case management. All labs and imaging personally reviewed by me. Remainder the time spent in detailed review of previous records, lab data, imaging, and other medical provider documentation.
Anticipated Discharge: > 48 hours
Subjective/Interval History
-
Date of Service: July 02, 2024
Patient seen and examined at bedside, cousin at bedside providing translation. Denies any chest pain or shortness of breath, mild abdominal pain, no nausea, no vomiting, no diarrhea or constipation.
Objective Data
-
Labs:
Laboratory Results
07/02/24
05:43
Sodium 140
Potassium 4.0
Chloride 105
Carbon Dioxide 26
BUN 73 H
Creatinine 7.7 H*
Glucose 92
Calcium 8.9
Vital Signs:
Vital Signs
Temp Pulse Resp BP Pulse Ox
97.9 F 62 16 153/94 98
07/02/24 07:25 07/02/24 07:25 07/02/24 07:25 07/02/24 07:25 07/02/24 07:25
I&O
07/01/24 07/02/24 07/03/24
06:59 06:59 06:59
Intake Total 200 / 200 3570 / 3570
Balance 200 / 200 3570 / 3570
Physical Exam
-
General: Well Developed, Well Nourished, No Apparent Distress and Comfortable
HEENT: Normocephalic, Atraumatic, Moist Mucous Membranes, No Ptosis, PERRLA and Nose Appears Normal
Respiratory: Clear to Auscultation and Non Labored Respirations
Cardiac: Regular Rhythm and S1/S2
Breast: Deferred by me
GI: Soft, Nondistended, Normal Bowel Sounds and Tender (At site of surgery)
Genito-urinary: No Costovertebral Tender
Musculoskeletal: No Clubbing, No Cyanosis and No Edema
Skin: Warm
Neuro: Awake, Alert, Oriented, AO x 3 and No Motor Deficits
Psych: Calm
Data Reviewed
-
Diagnostic Radiology: Image personally visualized and interpreted and Report Reviewed by me
CT Scan: Image personally visualized and interpreted and Report Reviewed by me
Ultrasound: Image personally visualized and interpreted and Report Reviewed by me
MRI: Image personally visualized and interpreted and Report Reviewed by me
Medical Tests (Nuc Med, Echo etc): Image personally visualized and interpreted and Report Reviewed by me
Labs: Labs Reviewed by me
Old Records: Reviewed
--- NOTE | 2024-07-02 11:24 | W.PN.NEPH.PH ---
Today's Communication / Plan
-
Follow BMP
No acute dialysis this week
Ideally will undergo renal biopsy early this week
Assessment/Plan
-
Assessment
Acute appendicitis
Elevated creatinine/ROBERTO
Metabolic acidosis
Proteinuria nephrotic range
Hematuria
Hypertension
Plan
Creatinine at 7.7 and improvement of metabolic acidosis with alkalized IV fluid
No acute requirement for dialysis at this time, however I am unsure if patient could leave hospital off of dialysis
3.7 g of proteinuria
Blood pressure controlled on atenolol and amlodipine
Urine output not recorded
Status post appendectomy
Urine eosinophils were negative
PEG negative
Complements normal
ANCA serologies pending
Serologic workup ordered
I suspect that this may be chronic kidney disease rather than acute kidney injury, however there could be an acute component given the acute appendicitis but I suspect that he would be mild contribution
He will require kidney biopsy though this should not be done when he can tolerate prone position during renal biopsy
I would ask general surgery if he would be cleared for renal biopsy early this week
-
-
Date of Service: July 02, 2024
CC / HPI / ROS
-
Chief Complaint:
ROBERTO/CKD
History of Present Illness:
Creatinine at 7.7
Metabolic acidosis improving with alkaline IV fluid
Hemodynamically stable on atenolol and amlodipine
Status post appendectomy 06/30/2024
Review of Systems:
Nonoliguric no chest pain or shortness of breath
Some minor postoperative abdominal pain
Labs
-
Labs:
WBC 6.6 10^3/uL (4.8-10.8) 07/01/24 05:37
RBC 3.07 10^6/uL (4.70-6.10) L 07/01/24 05:37
Hgb 9.4 g/dL (13.0-18.0) L 07/01/24 05:37
Hct 26.9 % (39.0-52.0) L 07/01/24 05:37
Plt Count 179 10^3/uL (130-400) 07/01/24 05:37
Sodium 140 mmol/L (135-145) 07/02/24 05:43
Potassium 4.0 mmol/L (3.5-5.1) 07/02/24 05:43
Chloride 105 mmol/L (98-107) 07/02/24 05:43
Carbon Dioxide 26 mmol/L (22-30) 07/02/24 05:43
BUN 73 mg/dl (9-20) H 07/02/24 05:43
Creatinine 7.7 mg/dL (0.7-1.3) H* 07/02/24 05:43
eGFR 9.08 07/02/24 05:43
Glucose 92 mg/dl (70-99) 07/02/24 05:43
Calcium 8.9 mg/dl (8.4-10.2) 07/02/24 05:43
Albumin 4.1 g/dl (3.5-5.0) 06/29/24 15:16
Physical Exam
-
Vital Signs:
Vital Signs
Temp Pulse Resp BP Pulse Ox
97.9 F 62 16 153/94 98
07/02/24 07:25 07/02/24 07:25 07/02/24 07:25 07/02/24 07:25 07/02/24 07:25
Cardiovascular:: Regular rate and rhythm
Respiratory:: Bilateral: CTA
Lung Excursion:: Normal
Abdomen:: Soft and Tender
Bowel Sounds:: Decreased
Extremity Edema:: None: Bilateral:
Heredia Catheter: No
[2024-07-02 15:10] VITALS: BP 147/97
[2024-07-02 17:48] LABS: Myeloperoxidase Antibody 0 AU/mL (0-19); Serine Protease-3, IgG 0 AU/mL (0-19)
[2024-07-02 23:09] VITALS: BP 150/98
[2024-07-03 06:00] VITALS: BMI 21.7
--- NOTE | 2024-07-03 06:40 | PTCARENOTE ---
Pt does report he is voiding without difficulty, no hematuria.
[2024-07-03 07:25] VITALS: BP 159/100
[2024-07-03 07:51] LABS: INR 1.02; PT 13.7 Sec (11.4-14.6)
[2024-07-03 07:57] LABS: Hematocrit 28.7 % (39.0-52.0); Mean Corp Hgb Conc. 34.8 g/dL (33.0-37.0); Mean Corpuscular Hgb 30.7 pg (27.0-31.0); Platelet Count 178 10^3/uL (130-400); Red Blood Cell Count 3.26 10^6/uL (4.70-6.10); Red Cell Dist. Width 11.8 % (11.5-14.5); White Blood Cell Count 4.9 10^3/uL (4.8-10.8)
[2024-07-03] MEDS: NORVASC 5 MG PO ×2 (08:05→10:50)
[2024-07-03] MEDS: TENORMIN 50 MG PO (08:05)
[2024-07-03 08:19] LABS: Blood Urea Nitrogen 74 mg/dl (9-20); Calcium 9.2 mg/dl (8.4-10.2); Carbon Dioxide 23 mmol/L (22-30); Chloride 108 mmol/L (98-107); Estimated Creatinine Clearance 16 ml/min; Glucose 92 mg/dl (70-99); Potassium 4.6 mmol/L (3.5-5.1); Sodium 140 mmol/L (135-145); eGFR 9.52
[2024-07-03 09:45] VITALS: BP 160/101
--- NOTE | 2024-07-03 10:23 | W.PN.NEPH.PH ---
Today's Communication / Plan
-
Escalate amlodipine to 10 mg
Would favor renal biopsy on Thursday if cleared by surgery re: appendectomy
Assessment/Plan
-
Assessment
Acute appendicitis
Elevated creatinine/ROBERTO
Metabolic acidosis
Proteinuria nephrotic range
Hematuria
Hypertension
Plan
Creatinine at 7.4
No acute requirement for dialysis at this time, however I am unsure if patient could leave hospital off of dialysis
3.7 g of proteinuria
Will escalate amlodipine from 5 to 10 mg in addition to atenolol for uncontrolled hypertension
Urine output not recorded
Status post appendectomy
Urine eosinophils were negative
PEG negative
Complements normal
ANCA serologies negative
I suspect that this may be chronic kidney disease rather than acute kidney injury, however there could be an acute component given the acute appendicitis but I suspect that he would be mild contribution
He will require kidney biopsy though this should not be done when he can tolerate prone position during renal biopsy
I would ask general surgery if he would be cleared for renal biopsy early this week (Thursday)
-
-
Date of Service: July 03, 2024
CC / HPI / ROS
-
Chief Complaint:
ROBERTO/CKD
History of Present Illness:
Creatinine at 7.4
Metabolic acidosis improved status post alkaline IV fluid
Hemodynamically stable on atenolol and amlodipine
Status post appendectomy 06/30/2024
Review of Systems:
Nonoliguric no chest pain or shortness of breath
Some minor postoperative abdominal pain
Labs
-
Labs:
WBC 4.9 10^3/uL (4.8-10.8) 07/03/24 06:59
RBC 3.26 10^6/uL (4.70-6.10) L 07/03/24 06:59
Hgb 10.0 g/dL (13.0-18.0) L 07/03/24 06:59
Hct 28.7 % (39.0-52.0) L 07/03/24 06:59
Plt Count 178 10^3/uL (130-400) 07/03/24 06:59
Sodium 140 mmol/L (135-145) 07/03/24 06:59
Potassium 4.6 mmol/L (3.5-5.1) 07/03/24 06:59
Chloride 108 mmol/L (98-107) H 07/03/24 06:59
Carbon Dioxide 23 mmol/L (22-30) 07/03/24 06:59
BUN 74 mg/dl (9-20) H 07/03/24 06:59
Creatinine 7.4 mg/dL (0.7-1.3) H* 07/03/24 06:59
eGFR 9.52 07/03/24 06:59
Glucose 92 mg/dl (70-99) 07/03/24 06:59
Calcium 9.2 mg/dl (8.4-10.2) 07/03/24 06:59
Albumin 4.1 g/dl (3.5-5.0) 06/29/24 15:16
Physical Exam
-
Vital Signs:
Vital Signs
Temp Pulse Resp BP Pulse Ox
98.4 F 65 16 160/101 99
07/03/24 07:25 07/03/24 09:45 07/03/24 07:25 07/03/24 09:45 07/03/24 07:25
Cardiovascular:: Regular rate and rhythm
Respiratory:: Bilateral: CTA
Lung Excursion:: Normal
Abdomen:: Soft and Tender
Bowel Sounds:: Decreased
Extremity Edema:: None: Bilateral:
Heredia Catheter: No
--- NOTE | 2024-07-03 11:18 | W.PN.HOSP.TC ---
Today's Communication/Plan
-
Biopsy pending
Assessment / Plan
Assessment / Plan
Impression:
Patient is 28 years old with history of hypertension who came to the ER with abdominal pain found to have uncomplicated acute appendicitis but also acute renal failure, unknown baseline creatinine.
CT abdomen pelvis shows:
Findings suggestion acute appendicitis. No evidence of perforation or abscess formation.
Findings suggestion benign bilateral adrenal hyperplasia
Moderate fecal material throughout the colon.
Mild diffuse bladder wall thickening. This can be seen with cystitis or bladder outlet obstruction
Patient admitted, consult for surgery and nephrology.
Status post appendectomy.
Nephrology believes this is probably chronic kidney disease stage V.
Plan for renal biopsy (possible Thursday)
Assessment/plan:
Acute renal failure.
Possible chronic kidney disease stage V
Unknown baseline.
Normal potassium and bicarb was 21 on presentation.
Bicarb dropped to 16, improved again after bicarb
Creatinine slowly trending down to 7.4
Nephrology consulted. Possible CKD stage V
Discontinue IV fluid and monitor kidney function.
Patient may require renal biopsy while inpatient.
Possible next week.
Metabolic acidosis.
Resolved
Acute uncomplicated appendicitis
Seen by surgery, status post appendectomy
Normocytic anemia.
Follow-up hemoglobin.
Unknown baseline.
Hypertension.
Hold clortailona (hydrochlorothiazide)
resume atenolol.
added Norvasc---> increased from 5 mg to 10 mg.
CODE STATUS: Full code
DVT prophylaxis: SCDs
Diet: Regular
Family communication: Discussed with family at bedside
Disposition: kidney biopsy pending
Total time spent on today's encounter was 65 minutes which included time spent in counseling the patient/family regarding diagnosis and treatment plan as listed above, goals of care, and symptom management. Case was discussed with nursing staff,
specialists, and care coordinators/case management. All labs and imaging personally reviewed by me. Remainder the time spent in detailed review of previous records, lab data, imaging, and other medical provider documentation.
Anticipated Discharge: > 48 hours
Subjective/Interval History
-
Date of Service: July 03, 2024
Patient seen and examined at bedside, cousin at bedside providing translation. Denies any chest pain or shortness of breath, mild abdominal pain, no nausea, no vomiting, no diarrhea or constipation.
Objective Data
-
Labs:
Laboratory Results
07/03/24
06:59
WBC 4.9
Hgb 10.0 L
Hct 28.7 L
Plt Count 178
PT 13.7
INR 1.02
Sodium 140
Potassium 4.6
Chloride 108 H
Carbon Dioxide 23
BUN 74 H
Creatinine 7.4 H*
Glucose 92
Calcium 9.2
Vital Signs:
Vital Signs
Temp Pulse Resp BP Pulse Ox
98.4 F 65 16 160/101 99
07/03/24 07:25 07/03/24 09:45 07/03/24 07:25 07/03/24 09:45 07/03/24 07:25
I&O
07/02/24 07/03/24 07/04/24
06:59 06:59 06:59
Intake Total 3570 / 3570 1830
Balance 3570 / 3570 1830
Physical Exam
-
General: Well Developed, Well Nourished, No Apparent Distress and Comfortable
HEENT: Normocephalic, Atraumatic, Moist Mucous Membranes, No Ptosis, PERRLA and Nose Appears Normal
Respiratory: Clear to Auscultation and Non Labored Respirations
Cardiac: Regular Rhythm and S1/S2
Breast: Deferred by me
GI: Soft, Nondistended, Normal Bowel Sounds and Tender (At site of surgery)
Genito-urinary: No Costovertebral Tender
Musculoskeletal: No Clubbing, No Cyanosis and No Edema
Skin: Warm
Neuro: Awake, Alert, Oriented, AO x 3 and No Motor Deficits
Psych: Calm
Data Reviewed
-
Diagnostic Radiology: Image personally visualized and interpreted and Report Reviewed by me
CT Scan: Image personally visualized and interpreted and Report Reviewed by me
Ultrasound: Image personally visualized and interpreted and Report Reviewed by me
MRI: Image personally visualized and interpreted and Report Reviewed by me
Medical Tests (Nuc Med, Echo etc): Image personally visualized and interpreted and Report Reviewed by me
Labs: Labs Reviewed by me
Old Records: Reviewed
[2024-07-03 15:03] VITALS: BP 142/92
--- NOTE | 2024-07-03 15:04 | PTCARENOTE ---
Received pt from [facility], pt ambulated self into new bed, AAOx3, VSS, pt oriented to call angel and room. Pt resting comfortably in bed with friend at bedside, language line within reach.
[2024-07-03 23:07] VITALS: BP 145/96
[2024-07-04 06:00] VITALS: BMI 21.6
[2024-07-04 07:16] VITALS: BP 146/95
[2024-07-04 07:45] LABS: Blood Urea Nitrogen 77 mg/dl (9-20); Calcium 9.4 mg/dl (8.4-10.2); Carbon Dioxide 23 mmol/L (22-30); Chloride 108 mmol/L (98-107); Estimated Creatinine Clearance 16 ml/min; Glucose 91 mg/dl (70-99); Potassium 5.3 mmol/L (3.5-5.1); Sodium 139 mmol/L (135-145); eGFR 9.52
[2024-07-04 07:46] LABS: Hematocrit 29.8 % (39.0-52.0); Hemoglobin 10.2 g/dL (13.0-18.0); Mean Corp Hgb Conc. 34.2 g/dL (33.0-37.0); Mean Corpuscular Hgb 30.2 pg (27.0-31.0); Mean Corpuscular Volume 88.2 fL (80.0-94.0); Mean Platelet Volume 10.8 fL (7.4-10.4); Platelet Count 196 10^3/uL (130-400); Red Blood Cell Count 3.38 10^6/uL (4.70-6.10); Red Cell Dist. Width 11.8 % (11.5-14.5); White Blood Cell Count 5.1 10^3/uL (4.8-10.8)
[2024-07-04] MEDS: NORVASC 10 MG PO (08:13)
[2024-07-04] MEDS: TENORMIN 50 MG PO (08:14)
[2024-07-04 09:16] LABS: Glucose - Point of Care 82 mg/dl (70-99)
[2024-07-04] MEDS: NOVOLIN R 0.1 UNITS IV (09:22)
[2024-07-04] MEDS: DEXTROSE 50% SYRINGE 25 GRAMS IV ×2 (09:25→22:40)
[2024-07-04 10:34] LABS: Glucose - Point of Care 155 mg/dl (70-99)
[2024-07-04 11:27] LABS: Glucose - Point of Care 81 mg/dl (70-99)
[2024-07-04 11:45] VITALS: BP 137/86
[2024-07-04 13:33] LABS: Glucose - Point of Care 82 mg/dl (70-99)
[2024-07-04 15:51] LABS: Glucose - Point of Care 89 mg/dl (70-99)
--- NOTE | 2024-07-04 15:51 | W.PN.NEPH.PH ---
Today's Communication / Plan
-
tentative k biopsy tomorrow
Assessment/Plan
-
Assessment
Acute appendicitis
Elevated creatinine/ROBERTO
Metabolic acidosis
Proteinuria nephrotic range
Hematuria
Hypertension
Plan
Creatinine at 7.4 no change but BUN has been increasing trend
mild hyperkalemia today -reviewed low k diet
No acute requirement for dialysis at this time, however I am unsure if patient could leave hospital off of dialysis
3.7 g of proteinuria, non oliguric with out story
Bp stable on meds- amlodipine and atenolol, HCTZ on hold
Status post appendectomy on 06/30
Urine eosinophils were negative
PEG negative
Complements normal
ANCA serologies negative
I suspect that this may be chronic kidney disease rather than acute kidney injury, however there could be an acute component given the acute appendicitis but I suspect that he would be mild contribution
He will require kidney biopsy though this should not be done when he can tolerate prone position during renal biopsy
I would ask general surgery if he would be cleared for renal biopsy early this week (Thursday)
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
If not he will travel back to [place] and take care of it. He has 1 yr old kid back at home
d/w nursing
-
-
Date of Service: July 04, 2024
CC / HPI / ROS
-
Chief Complaint:
ROBERTO/CKD
History of Present Illness:
Creatinine at 7.4, no change , k was at 5.3, repeat at 5.
Hemodynamically stable on atenolol and amlodipine
Status post appendectomy 06/30/2024
Review of Systems:
Nonoliguric no chest pain or shortness of breath
no n/v
no other complaints
no dysuria
Labs
-
Labs:
WBC 5.1 10^3/uL (4.8-10.8) 07/04/24 06:06
RBC 3.38 10^6/uL (4.70-6.10) L 07/04/24 06:06
Hgb 10.2 g/dL (13.0-18.0) L 07/04/24 06:06
Hct 29.8 % (39.0-52.0) L 07/04/24 06:06
Plt Count 196 10^3/uL (130-400) 07/04/24 06:06
eGFR 9.52 07/04/24 06:06
Albumin 4.1 g/dl (3.5-5.0) 06/29/24 15:16
Physical Exam
-
Vital Signs:
Vital Signs
Temp Pulse Resp BP Pulse Ox
98.3 F 65 16 137/86 98
07/04/24 11:45 07/04/24 11:45 07/04/24 11:45 07/04/24 11:45 07/04/24 11:45
Cardiovascular:: Regular rate and rhythm
Respiratory:: Bilateral: CTA
Lung Excursion:: Normal
Abdomen:: Nontender and Soft
Extremity Edema:: None: Bilateral:
Story Catheter: No
[2024-07-04 15:52] VITALS: BP 145/92
--- NOTE | 2024-07-04 16:13 | W.PN.HOSP.TC ---
Addendum entered and electronically signed by Loco Linares MD 07/05/24 14:20:
28 male history of hypertension presenting with abdominal pain found to have acute appendicitis and was taken to the OR with surgery for lap appendectomy. However, was also found to have renal failure with a creatinine of 7.8 that came down to 7.4
and has been steady.
Acute kidney injury on chronic kidney disease stage IV versus progressive CKD stage IV with nephrotic range proteinuria
PEG negative
Complements normal
ASO negative
No urine eosinophil
Need to monitor urinary output closely
Avoid nephrotoxins hypotension
Fortunately does not require emergent hemodialysis but I do agree with nephrology that it is unlikely that he will be discharged from the hospital with out requiring hemodialysis
For renal biopsy on Thursday if cleared by surgery to lay prone
Hyperkalemia
I have asked nephrology if I could potentially provide him with Lewis, hesitant as he is recently post op intra-abdominal surgery with a lap appendectomy on 06/30
Will temporize for now though until able to get definitive answer
Acute appendicitis
S/p lap appendectomy on 06/30
Hypertension
Continue amlodipine and atenolol
Normocytic anemia
Hemoglobin stable without evidence of acute active bleeding
Original Note:
Today's Communication/Plan
-
Follow BMP
Kidney biopsy pending
Monitor blood pressure
Assessment / Plan
Assessment / Plan
Impression:
Who patient is a 28-year-old male with past medical history of hypertension. He is from [place] and did not have a regular primary care physician. He was taking triple regimen with atenolol thiazide and calcium channel jazmine to control blood
pressure. Denies any personal or family history of any kidney issues. A CT abdomen was done in the ER, consistent with acute appendicitis. There was also mild benign bilateral adrenal hyperplasia and diffuse thickening of bladder wall. In
addition the patient's GFR came back to be less than 15 with a creatinine of 7.7 for which workup of acute kidney injury versus chronic kidney disease was started.
Currently patient has had laparoscopic appendectomy and is recovering well. His workup for kidney disease is being followed up by nephrology. PEG negative, ANCA negative, complement levels normal. Urine analysis without any eosinophils but with
nephrotic range proteinuria.
Nephrology suspect stage V kidney disease rather than acute kidney injury. Kidney biopsy to be done tomorrow on 07/05
Assessment/plan:
ROBERTO versus chronic kidney disease stage V
Unknown baseline.
As per the patient, never had any personal or family history of kidney issues
On presentation potassium was normal and bicarb was normal, developed metabolic acidosis, corrected with alkaline fluids
Serum creatinine stable at 7.4, slight elevation in potassium levels this morning, treated with insulin and dextrose
Nephrology consult appreciated----suspect chronic kidney disease rather than acute kidney injury, GFR less than 15, nephrotic range proteinuria, kidney biopsy planned for tomorrow
Repeat BMP in evening to assess serum potassium
Metabolic acidosis.
Resolved
Acute uncomplicated appendicitis
S/p laparoscopic appendectomy
Incisions healing well
Normocytic anemia.
Hemoglobin stable at 10
Continue to monitor
Hypertension.
Patient is on atenolol 50 mg daily and amlodipine 10 mg daily
Blood pressure stable around 140
Continue to monitor
CODE STATUS: Full code
DVT prophylaxis: SCDs
Diet: Regular
Anticipated Discharge: 24 - 48 hours
Subjective/Interval History
-
Date of Service: July 04, 2024
Denies any active issues, feeling well, incision healing okay
Objective Data
-
Labs:
Laboratory Results
07/04/24 07/04/24 07/04/24
06:06 11:37 18:00
WBC 5.1
Hgb 10.2 L
Hct 29.8 L
Plt Count 196
Sodium 139 Pending
Potassium 5.3 H 5.0 Pending
Chloride 108 H Pending
Carbon Dioxide 23 Pending
BUN 77 H Pending
Creatinine 7.4 H* Pending
Glucose 91 Pending
Calcium 9.4 Pending
Vital Signs:
Vital Signs
Temp Pulse Resp BP Pulse Ox
98.6 F 63 16 145/92 99
07/04/24 15:52 07/04/24 15:52 07/04/24 15:52 07/04/24 15:52 07/04/24 15:52
I&O
07/03/24 07/04/24 07/05/24
06:59 06:59 06:59
Intake Total 1830 1840 / 184
Output Total 1150 / 1150
Balance 1830 690 / 690
Review of Systems
-
All other systems: Reviewed and negative
Physical Exam
-
General: Well Developed, Well Nourished and Other (Primarily Kazakh-speaking, cousin present on bedside to help with translation)
HEENT: Other (Facial swelling, periorbital edema)
Respiratory: Negative Wheezes, Rales or Rhonchi
Cardiac: Regular Rhythm and S1/S2
GI: Soft, Nontender, Normal Bowel Sounds and Other (Incisions healing well)
Musculoskeletal: No Clubbing, No Cyanosis and No Edema
Skin: Warm and Dry
Neuro: Awake and Oriented
Psych: Calm
--- NOTE | 2024-07-04 16:17 | CM ---
CM met with Sudhakar and his family member Lola Lawton; provided Lola with the [facility] application.
CM to follow up tomorrow with Lola to obtain the completed application.
Plan for renal biopsy tomorrow; family is anxious for the results, hoping dialysis will not be needed.
[2024-07-04 18:51] LABS: Blood Urea Nitrogen 79 mg/dl (9-20); Calcium 9.3 mg/dl (8.4-10.2); Carbon Dioxide 22 mmol/L (22-30); Chloride 107 mmol/L (98-107); Estimated Creatinine Clearance 17 ml/min; Glucose 130 mg/dl (70-99); Potassium 5.2 mmol/L (3.5-5.1); Sodium 137 mmol/L (135-145); eGFR 10.18
[2024-07-04 19:10] VITALS: BP 137/88
[2024-07-04 20:04] VITALS: BP 147/91
[2024-07-04 22:38] LABS: Glucose - Point of Care 77 mg/dl (70-99)
[2024-07-04] MEDS: NOVOLIN R 0.05 UNITS IV (22:40)
[2024-07-04 23:12] VITALS: BP 150/95
[2024-07-04 23:41] LABS: Glucose - Point of Care 116 mg/dl (70-99)
[2024-07-05 00:54] LABS: Glucose - Point of Care 77 mg/dl (70-99)
[2024-07-05 03:03] LABS: Glucose - Point of Care 90 mg/dl (70-99)
[2024-07-05 03:07] VITALS: BP 127/80
[2024-07-05 04:53] LABS: Glucose - Point of Care 85 mg/dl (70-99)
[2024-07-05 05:26] LABS: Hematocrit 30.7 % (39.0-52.0); Hemoglobin 10.7 g/dL (13.0-18.0); Mean Corp Hgb Conc. 34.9 g/dL (33.0-37.0); Mean Corpuscular Hgb 29.6 pg (27.0-31.0); Mean Platelet Volume 10.6 fL (7.4-10.4); Platelet Count 197 10^3/uL (130-400); Red Blood Cell Count 3.61 10^6/uL (4.70-6.10); Red Cell Dist. Width 11.6 % (11.5-14.5)
[2024-07-05 06:00] VITALS: BMI 21.2
[2024-07-05 07:10] VITALS: BP 137/76
[2024-07-05 07:33] LABS: Blood Urea Nitrogen 76 mg/dl (9-20); Calcium 9.8 mg/dl (8.4-10.2); Carbon Dioxide 20 mmol/L (22-30); Chloride 107 mmol/L (98-107); Estimated Creatinine Clearance 17 ml/min; Glucose 77 mg/dl (70-99); Potassium 5.3 mmol/L (3.5-5.1); Sodium 139 mmol/L (135-145); eGFR 10.35
[2024-07-05] MEDS: NORVASC 10 MG PO (07:46)
[2024-07-05] MEDS: TENORMIN 50 MG PO (07:46)
[2024-07-05] MEDS: LOKELMA 5 GRAM PO (10:07)
[2024-07-05 12:00] VITALS: BP 154/86
[2024-07-05] MEDS: SODIUM BICARBONATE 650 MG PO (12:25)
--- NOTE | 2024-07-05 13:17 | W.PN.HOSP.TC ---
Addendum entered and electronically signed by Loco Linares MD 07/05/24 14:22:
28 male history of hypertension presenting with abdominal pain found to have acute appendicitis and was taken to the OR with surgery for lap appendectomy. However, was also found to have renal failure with a creatinine of 7.8 that came down to 7.4
and has been steady.
Acute kidney injury on chronic kidney disease stage IV versus progressive CKD stage IV with nephrotic range proteinuria
PEG negative
Complements normal
ASO negative
No urine eosinophil
Need to monitor urinary output closely
Avoid nephrotoxins hypotension
Fortunately does not require emergent hemodialysis but I do agree with nephrology that it is unlikely that he will be discharged from the hospital with out requiring hemodialysis
For renal biopsy on Thursday if cleared by surgery to lay prone
Hyperkalemia
Temporize, low K diet, Lokelma, Tele pack
Acute appendicitis
S/p lap appendectomy on 06/30
Hypertension
Continue amlodipine and atenolol
Normocytic anemia
Hemoglobin stable without evidence of acute active bleeding
Original Note:
Today's Communication/Plan
-
Kidney biopsy today
Continue to monitor bicarb and potassium levels
Follow nephro recommendations regarding CKD
Assessment / Plan
Assessment / Plan
Impression:
Who patient is a 28-year-old male with past medical history of hypertension. He is from [place] and did not have a regular primary care physician. He was taking triple regimen with atenolol thiazide and calcium channel jazmine to control blood
pressure. Denies any personal or family history of any kidney issues. A CT abdomen was done in the ER, consistent with acute appendicitis. There was also mild benign bilateral adrenal hyperplasia and diffuse thickening of bladder wall. In
addition the patient's GFR came back to be less than 15 with a creatinine of 7.7 for which workup of acute kidney injury versus chronic kidney disease was started.
Currently patient has had laparoscopic appendectomy and is recovering well. His workup for kidney disease is being followed up by nephrology. PEG negative, ANCA negative, complement levels normal. Urine analysis without any eosinophils but with
nephrotic range proteinuria.
Nephrology suspect stage V kidney disease rather than acute kidney injury. Kidney biopsy to be done tomorrow on 07/05
Assessment/plan:
ROBERTO versus chronic kidney disease stage V
Unknown baseline.
As per the patient, never had any personal or family history of kidney issues
On presentation potassium was normal and bicarb was normal, developed metabolic acidosis, corrected with alkaline fluids
Nephrology consult appreciated----suspect chronic kidney disease rather than acute kidney injury, GFR less than 15, nephrotic range proteinuria, kidney biopsy planned for today
Developing metabolic acidosis
Replete bicarb as per KDIGO guidelines
Monitor
Hyperkalemia
Lokelma Per oral stat
Monitor potassium levels-manage accordingly
Acute uncomplicated appendicitis
S/p laparoscopic appendectomy
Incisions healing well
Normocytic anemia.
Hemoglobin stable at 10
Continue to monitor
Hypertension.
Patient is on atenolol 50 mg daily and amlodipine 10 mg daily
Blood pressure stable around 140
Continue to monitor
CODE STATUS: Full code
DVT prophylaxis: SCDs
Anticipated Discharge: 24 - 48 hours
Subjective/Interval History
-
Date of Service: July 05, 2024
No active issues, feels fine, no shortness of breath and is producing urine
Objective Data
-
Labs:
Laboratory Results
07/05/24 07/05/24 07/05/24
00:28 05:15 05:21
WBC 7.0
Hgb 10.7 L
Hct 30.7 L
Plt Count 197
Sodium 139
Potassium Cancelled 5.3 H
Chloride 107
Carbon Dioxide 20 L
BUN 76 H
Creatinine 6.9 H*
Glucose 77
Calcium 9.8
Vital Signs:
Vital Signs
Temp Pulse Resp BP Pulse Ox
98.8 F 66 16 154/86 100
07/05/24 12:00 07/05/24 12:00 07/05/24 12:00 07/05/24 12:00 07/05/24 12:00
I&O
07/04/24 07/05/24 07/06/24
06:59 06:59 06:59
Intake Total 1840 / 1840 900 / 900
Output Total 1150 / 1150 2630 / 2630
Balance 690 / 690 -1730 / -1730
Review of Systems
-
All other systems: Reviewed and negative
Physical Exam
-
General: No Apparent Distress, Comfortable, Conversant and Other (Primarily Ukrainian-speaking, cousin present on bedside to help with translation)
HEENT: Moist Mucous Membranes and Other
Respiratory: Clear to Auscultation; Negative Wheezes, Rales or Rhonchi
Cardiac: Regular Rhythm and S1/S2
GI: Soft, Nontender, Nondistended and Normal Bowel Sounds
Musculoskeletal: No Clubbing, No Cyanosis and No Edema
Skin: Warm and Dry
Neuro: Awake, Oriented and Nonfocal/Grossly Intact
Psych: Calm
[2024-07-05 14:45] VITALS: BP 137/87
--- NOTE | 2024-07-05 15:07 | CM ---
CM following re: discharge planning.
Reviewed pt's chart, met with pt and pt's friend at bedside.
Per chart review, kidney biopsy today, suspected stage V kidney disease.
Per previous CM note yesterday pt is independent with ADL and IADL, lives with a friend, has no insurance and pt will followup at [facility].
[facility] specialist following.
D/C plan: home with his friend. Pt might need outpatient HD treatment.
CM will follow with discharge plan updates as needed.
--- NOTE | 2024-07-05 15:39 | W.PN.NEPH.PH ---
Today's Communication / Plan
-
follow labs
K biopsy tomorrow
Assessment/Plan
-
Assessment
Acute appendicitis
Elevated creatinine/ROBERTO
Metabolic acidosis
Proteinuria nephrotic range
Hematuria
Hypertension
Plan
Creatinine better at 6.9, mild improvement of bun
mild hyperkalemia today -reviewed low k diet, s/p Lokelma
No acute requirement for dialysis at this time, however I am unsure if patient could leave hospital off of dialysis unless cr sig improvement
3.7 g of proteinuria, non oliguric with out story
Bp stable on meds- amlodipine and atenolol, HCTZ on hold
Status post appendectomy on 06/30
Urine eosinophils were negative
PEG negative
Complements normal
ANCA serologies negative
I suspect that this may be chronic kidney disease rather than acute kidney injury, however there could be an acute component given the acute appendicitis but I suspect that he would be mild contribution
He will require kidney biopsy arranged tomorrow
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
If not he will travel back to [place] and take care of it. He has 1 yr old kid back at home
-
-
Date of Service: July 05, 2024
CC / HPI / ROS
-
Chief Complaint:
ROBERTO/CKD
History of Present Illness:
Creatinine down to 6.9, k was at 5.3
Hemodynamically stable on atenolol and amlodipine
Status post appendectomy 06/30/2024
Review of Systems:
Nonoliguric no chest pain or shortness of breath
no n/v
no other complaints
no dysuria
Labs
-
Labs:
WBC 7.0 10^3/uL (4.8-10.8) 07/05/24 05:15
RBC 3.61 10^6/uL (4.70-6.10) L 07/05/24 05:15
Hgb 10.7 g/dL (13.0-18.0) L 07/05/24 05:15
Hct 30.7 % (39.0-52.0) L 07/05/24 05:15
Plt Count 197 10^3/uL (130-400) 07/05/24 05:15
eGFR 10.35 07/05/24 05:21
Albumin 4.1 g/dl (3.5-5.0) 06/29/24 15:16
Physical Exam
-
Vital Signs:
Vital Signs
Temp Pulse Resp BP Pulse Ox
98.1 F 67 16 137/87 97
07/05/24 14:45 07/05/24 14:45 07/05/24 14:45 07/05/24 14:45 07/05/24 14:45
Cardiovascular:: Regular rate and rhythm
Respiratory:: Bilateral: CTA
Lung Excursion:: Normal
Abdomen:: Nontender and Soft
Extremity Edema:: None: Bilateral:
Story Catheter: No
[2024-07-05 15:51] LABS: Blood Urea Nitrogen 77 mg/dl (9-20); Calcium 9.5 mg/dl (8.4-10.2); Carbon Dioxide 20 mmol/L (22-30); Chloride 107 mmol/L (98-107); Estimated Creatinine Clearance 17 ml/min; Glucose 206 mg/dl (70-99); Potassium 4.8 mmol/L (3.5-5.1); Sodium 135 mmol/L (135-145); eGFR 10.01
[2024-07-05 19:15] VITALS: BP 122/78
[2024-07-05 23:10] VITALS: BP 132/80
[2024-07-06 06:33] LABS: % Eosinophils 8.6 % (0-6); % Immature Granulocytes 0.3 % (0-0.5); % Lymphocytes 32.8 % (20.5-51.1); % Monocytes 8.4 % (1.7-9.3); % Neutrophils 48.9 % (42.2-75.2); Absolute Basophils 0.1 10^3/uL (0-0.2); Absolute Eosinophils 0.5 10^3/uL (0-0.7); Absolute Monocytes 0.5 10^3/uL (0.1-0.6); Hematocrit 31.8 % (39.0-52.0); Hemoglobin 10.9 g/dL (13.0-18.0); Mean Corp Hgb Conc. 34.3 g/dL (33.0-37.0); Mean Corpuscular Hgb 29.6 pg (27.0-31.0); Mean Corpuscular Volume 86.4 fL (80.0-94.0); Mean Platelet Volume 10.5 fL (7.4-10.4); Nucleated Red Blood Cells % 0 % (-); Platelet Count 210 10^3/uL (130-400); Red Blood Cell Count 3.68 10^6/uL (4.70-6.10); Red Cell Dist. Width 11.8 % (11.5-14.5); White Blood Cell Count 6.2 10^3/uL (4.8-10.8)
[2024-07-06 07:10] VITALS: BP 127/79
[2024-07-06 07:22] LABS: Blood Urea Nitrogen 83 mg/dl (9-20); Calcium 9.6 mg/dl (8.4-10.2); Carbon Dioxide 19 mmol/L (22-30); Chloride 108 mmol/L (98-107); Estimated Creatinine Clearance 16 ml/min; Glucose 87 mg/dl (70-99); Magnesium 1.9 mg/dl (1.6-2.3); Potassium 5.5 mmol/L (3.5-5.1); Sodium 137 mmol/L (135-145); eGFR 9.68
[2024-07-06] MEDS: TENORMIN PO (09:57)
[2024-07-06] MEDS: NORVASC 10 MG PO (10:07)
[2024-07-06 10:29] VITALS: BMI 21.1
--- NOTE | 2024-07-06 10:34 | PTCARENOTE ---
IR called to floor and notified this RN that patient will not get renal biopsy today d/t scheduling. MD and resident made aware, patient made aware per casket liner. 2g K diet order entered per resident. K 5.5 this AM, this RN communicated with MD
and residentLewis ordered per resident. Scheduled PO atenolol held per resident d/t HR sinus beny in high 50s on tele monitor.
[2024-07-06 11:00] VITALS: BP 137/82
--- NOTE | 2024-07-06 11:07 | W.PN.NEPH.PH ---
Today's Communication / Plan
-
bicarb
Assessment/Plan
-
Assessment
Acute appendicitis
Elevated creatinine/ROBERTO
Metabolic acidosis
Proteinuria nephrotic range
Hematuria
Hypertension
Plan
follow BMP
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
lokelid course
add bicarb
bx tomorrow
no emergent HD needs currently, but will likely need HD in the near future.
This is more a logistical issue. He need insurance and CM assistance. 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
If not he will travel back to [place] and take care of it. He has 1 yr old kid back at home
-
-
Date of Service: July 06, 2024
CC / HPI / ROS
-
Chief Complaint:
ROBERTO/CKD
History of Present Illness:
Creatinine up to 7.3, K 5.5
Hemodynamically stable on atenolol and amlodipine
Status post appendectomy 06/30/2024
Review of Systems:
Nonoliguric no chest pain or shortness of breath
no n/v
no other complaints
no dysuria
Labs
-
Labs:
WBC 6.2 10^3/uL (4.8-10.8) 07/06/24 05:59
RBC 3.68 10^6/uL (4.70-6.10) L 07/06/24 05:59
Hgb 10.9 g/dL (13.0-18.0) L 07/06/24 05:59
Hct 31.8 % (39.0-52.0) L 07/06/24 05:59
Plt Count 210 10^3/uL (130-400) 07/06/24 05:59
Sodium 137 mmol/L (135-145) 07/06/24 05:59
Potassium 5.5 mmol/L (3.5-5.1) H 07/06/24 05:59
Chloride 108 mmol/L (98-107) H 07/06/24 05:59
Carbon Dioxide 19 mmol/L (22-30) L 07/06/24 05:59
BUN 83 mg/dl (9-20) H 07/06/24 05:59
Creatinine 7.3 mg/dL (0.7-1.3) H* 07/06/24 05:59
eGFR 9.68 07/06/24 05:59
Glucose 87 mg/dl (70-99) 07/06/24 05:59
Calcium 9.6 mg/dl (8.4-10.2) 07/06/24 05:59
Albumin 4.1 g/dl (3.5-5.0) 06/29/24 15:16
Physical Exam
-
Vital Signs:
Vital Signs
Temp Pulse Resp BP Pulse Ox
98.2 F 57 18 127/79 99
07/06/24 07:10 07/06/24 10:07 07/06/24 07:10 07/06/24 10:07 07/06/24 07:10
Cardiovascular:: Regular rate and rhythm
Respiratory:: Bilateral: CTA
Lung Excursion:: Normal
Abdomen:: Nontender and Soft
Bowel Sounds:: Normal
Extremity Edema:: None: Bilateral:
[2024-07-06] MEDS: SODIUM BICARBONATE 650 MG PO ×2 (11:42→20:16)
--- NOTE | 2024-07-06 11:51 | CM ---
CM following re: discharge planning.
Reviewed pt's chart, met with pt and pt's sister at bedside.
Per Pension Agent, no emergent HD needs currently, but will likely need HD in the near future. 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 He
has 1 yr old kid back at home
Per previous CM note yesterday pt is independent with ADL and IADL, lives with a friend, has no insurance and pt will follow up at [facility].
HRSI specialist following.
D/C plan: home with his friend.
CM will follow with discharge plan updates as needed.
[2024-07-06] MEDS: LOKELMA 5 GRAM PO ×2 (13:35→17:06)
--- NOTE | 2024-07-06 14:12 | W.PN.HOSP.TC ---
Addendum entered and electronically signed by Loco Linares MD 07/07/24 14:43:
28 male history of hypertension presenting with abdominal pain found to have acute appendicitis and was taken to the OR with surgery for lap appendectomy. However, was also found to have renal failure with a creatinine of 7.8 that came down to 7.4
and has been steady.
Acute kidney injury on chronic kidney disease stage IV versus progressive CKD stage IV with nephrotic range proteinuria
PEG negative
Complements normal
ASO negative
No urine eosinophil
Need to monitor urinary output closely - urinating well/normal
Avoid nephrotoxins hypotension
Fortunately does not require emergent hemodialysis but I do agree with nephrology that it is unlikely that he will be discharged from the hospital with out requiring hemodialysis
For renal biopsy pushed to following day due to scheduling
Hyperkalemia to 5.2
Temporize, low K diet, Lokelma 10mg qd, Tele pack
Acute appendicitis
S/p lap appendectomy on 06/30
Hypertension
Continue amlodipine and atenolol
Normocytic anemia
Hemoglobin stable without evidence of acute active bleeding
Original Note:
Today's Communication/Plan
-
Renal biopsy tomorrow
Continue to monitor potassium levels
Avoid nephrotoxins
Assessment / Plan
Assessment / Plan
Impression:
Who patient is a 28-year-old male with past medical history of hypertension. He is from [place] and did not have a regular primary care physician. He was taking triple regimen with atenolol thiazide and calcium channel jazmine to control blood
pressure. Denies any personal or family history of any kidney issues. A CT abdomen was done in the ER, consistent with acute appendicitis. There was also mild benign bilateral adrenal hyperplasia and diffuse thickening of bladder wall. In
addition the patient's GFR came back to be less than 15 with a creatinine of 7.7 for which workup of acute kidney injury versus chronic kidney disease was started.
Patient had laparoscopic appendectomy on June 30, 2024 and is recovering well. His workup for kidney disease is being followed up by nephrology. PEG negative, ANCA negative, complement levels normal. Urine analysis without any eosinophils but with
nephrotic range proteinuria.
Admitted for workup of elevated creatinine/ROBERTO, hyperkalemia, metabolic acidosis, nephrotic range proteinuria, hematuria and hypertension.
Nephrology suspect stage V kidney disease rather than acute kidney injury. Kidney biopsy pending.
Assessment/plan:
ROBERTO versus chronic kidney disease stage V
Unknown baseline.
As per the patient, never had any personal or family history of kidney issues
On presentation potassium was normal and bicarb was normal, developed metabolic acidosis, corrected with alkaline fluids
Nephrology consult appreciated----suspect chronic kidney disease rather than acute kidney injury, GFR less than 15, nephrotic range proteinuria, kidney biopsy pending
Patient is producing urine, but would require dialysis in near future, nephrology on board, suggested that he might need renal transplant as well and he needs to work on his insurance with the correctional casework specialist.
Hyperkalemia
Lokelma daily
Monitor potassium levels
Low potassium diet
Acute uncomplicated appendicitis
S/p laparoscopic appendectomy
Incisions healing well
Normocytic anemia.
Hemoglobin stable at 10
Continue to monitor
Hypertension.
Patient is on atenolol 50 mg daily and amlodipine 10 mg daily
Blood pressure stable around 140
Continue to monitor
CODE STATUS: Full code
DVT prophylaxis: SCDs
Anticipated Discharge: 24 - 48 hours
Subjective/Interval History
-
Date of Service: July 06, 2024
No active issues, was n.p.o. in the morning for biopsy, got delayed, started on low potassium diet
Objective Data
-
Labs:
Laboratory Results
07/06/24
05:59
WBC 6.2
Hgb 10.9 L
Hct 31.8 L
Plt Count 210
Sodium 137
Potassium 5.5 H
Chloride 108 H
Carbon Dioxide 19 L
BUN 83 H
Creatinine 7.3 H*
Glucose 87
Calcium 9.6
Vital Signs:
Vital Signs
Temp Pulse Resp BP Pulse Ox
99 F 59 16 137/82 100
07/06/24 11:00 07/06/24 11:00 07/06/24 11:00 07/06/24 11:00 07/06/24 11:00
I&O
07/05/24 07/06/24 07/07/24
06:59 06:59 06:59
Intake Total 900 / 900 1200 / 1200
Output Total 2630 / 2630 1725 / 1725
Balance -1730 / -1730 -525 / -525
Review of Systems
-
All other systems: Reviewed and negative
Physical Exam
-
General: No Apparent Distress, Comfortable, Conversant and Other (Periorbital edema)
HEENT: Moist Mucous Membranes and Anicteric
Respiratory: Clear to Auscultation; Negative Wheezes, Rales or Rhonchi
Cardiac: Regular Rhythm and S1/S2; Negative Murmur, Rub or Gallop
GI: Soft, Nontender, Nondistended and Normal Bowel Sounds
Musculoskeletal: No Clubbing, No Cyanosis and No Edema
Skin: Warm and Dry
Neuro: Awake, Oriented and Nonfocal/Grossly Intact
Psych: Calm
[2024-07-06 15:00] VITALS: BP 130/81
[2024-07-06 19:00] VITALS: BP 129/75
[2024-07-06 23:31] VITALS: BP 134/83
[2024-07-07] VITALS (10 sets, daily range): BP systolic 65–138; BP diastolic 64–79; BMI 21.1
[2024-07-07 06:11] LABS: Hematocrit 30.8 % (39.0-52.0); Hemoglobin 11.1 g/dL (13.0-18.0); Mean Corpuscular Hgb 30.9 pg (27.0-31.0); Mean Corpuscular Volume 85.8 fL (80.0-94.0); Mean Platelet Volume 10.3 fL (7.4-10.4); Platelet Count 209 10^3/uL (130-400); Red Blood Cell Count 3.59 10^6/uL (4.70-6.10); Red Cell Dist. Width 11.7 % (11.5-14.5); White Blood Cell Count 6.8 10^3/uL (4.8-10.8)
[2024-07-07 06:35] LABS: Blood Urea Nitrogen 90 mg/dl (9-20); Calcium 9.6 mg/dl (8.4-10.2); Carbon Dioxide 19 mmol/L (22-30); Chloride 107 mmol/L (98-107); Estimated Creatinine Clearance 15 ml/min; Glucose 89 mg/dl (70-99); Phosphorus 7.9 mg/dl (2.5-4.5); Potassium 5.2 mmol/L (3.5-5.1); Sodium 138 mmol/L (135-145); eGFR 9.08
[2024-07-07] MEDS: LOKELMA 5 GRAM PO ×2 (06:54→09:21)
--- NOTE | 2024-07-07 07:27 | W.PN.HOSP.TC ---
Today's Communication/Plan
-
Renal biopsy today
Monitor potassium levels, patient, and Lokelma 10 mg daily
Monitor bicarb level
Manage electrolyte derangement
Assessment / Plan
Assessment / Plan
Impression:
Who patient is a 28-year-old male with past medical history of hypertension. He is from [place] and did not have a regular primary care physician. He was taking triple regimen with atenolol thiazide and calcium channel jazmine to control blood
pressure. Denies any personal or family history of any kidney issues. A CT abdomen was done in the ER, consistent with acute appendicitis. There was also mild benign bilateral adrenal hyperplasia and diffuse thickening of bladder wall. In
addition the patient's GFR came back to be less than 15 with a creatinine of 7.7 for which workup of acute kidney injury versus chronic kidney disease was started.
Patient had laparoscopic appendectomy on June 30, 2024 and is recovering well. His workup for kidney disease is being followed up by nephrology. PEG negative, ANCA negative, complement levels normal. Urine analysis without any eosinophils but with
nephrotic range proteinuria.
Admitted for workup of elevated creatinine/ROBERTO, hyperkalemia, metabolic acidosis, nephrotic range proteinuria, hematuria and hypertension.
Nephrology suspect stage V kidney disease rather than acute kidney injury. Kidney biopsy pending.
Assessment/plan:
ROBERTO versus chronic kidney disease stage V
Unknown baseline.
As per the patient, never had any personal or family history of kidney issues
On presentation potassium was normal and bicarb was normal, developed metabolic acidosis, corrected with alkaline fluids
Nephrology consult appreciated----suspect chronic kidney disease rather than acute kidney injury, GFR less than 15, nephrotic range proteinuria, kidney biopsy pending
Patient is producing urine, but would require dialysis in near future, nephrology on board, suggested that he might need renal transplant as well and he needs to work on his insurance with the rifle case repairer.
workup of elevated creatinine/ROBERTO, hyperkalemia, metabolic acidosis, nephrotic range proteinuria, hematuria and hypertension
Hyperkalemia
Lokelma daily
Monitor potassium levels
Low potassium diet
Acute uncomplicated appendicitis
S/p laparoscopic appendectomy
Incisions healing well
Normocytic anemia.
Hemoglobin stable at 10
Continue to monitor
Hypertension.
Patient is on atenolol 50 mg daily and amlodipine 10 mg daily
Blood pressure stable
Continue to monitor
CODE STATUS: Full code
DVT prophylaxis: SCDs
Anticipated Discharge: 24 - 48 hours
Subjective/Interval History
-
Date of Service: July 07, 2024
No active issues
Objective Data
-
Labs:
Laboratory Results
07/07/24
05:53
WBC 6.8
Hgb 11.1 L
Hct 30.8 L
Plt Count 209
Sodium 138
Potassium 5.2 H
Chloride 107
Carbon Dioxide 19 L
BUN 90 H
Creatinine 7.7 H*
Glucose 89
Calcium 9.6
Vital Signs:
Vital Signs
Temp Pulse Resp BP Pulse Ox
98.1 F 61 16 111/67 100
07/07/24 07:10 07/07/24 07:10 07/07/24 07:10 07/07/24 07:10 07/07/24 07:10
I&O
07/06/24 07/07/24 07/08/24
06:59 06:59 06:59
Intake Total 1200 / 1200 1200 / 1200
Output Total 1725 / 1725 1725 / 1725
Balance -525 / -525 -525 / -525
Review of Systems
-
All other systems: Reviewed and negative
Physical Exam
-
General: No Apparent Distress, Comfortable and Other (Appears very pale and has periorbital edema)
HEENT: Moist Mucous Membranes
Respiratory: Clear to Auscultation; Negative Wheezes, Rales or Rhonchi
Cardiac: Regular Rhythm and S1/S2; Negative Murmur, Rub or Gallop
GI: Soft, Nontender and Normal Bowel Sounds
Musculoskeletal: No Clubbing, No Cyanosis and No Edema
Skin: Warm and Dry
Neuro: Awake, Oriented and Nonfocal/Grossly Intact
Psych: Calm
[2024-07-07] MEDS: NORVASC 10 MG PO (08:21)
[2024-07-07] MEDS: TENORMIN 50 MG PO (08:21)
[2024-07-07] MEDS: SODIUM BICARBONATE 650 MG PO (08:21)
--- NOTE | 2024-07-07 14:17 | CM ---
CM following re: discharge planning.
Reviewed pt's chart, met with pt and pt's sister at bedside.
per zackery rtevdarshan, renal biopsy today, continue supportive care.
Per System Dispatcher, no emergent HD needs currently, but will likely need HD in the near future. 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 He
has 1 yr old kid back at home
Pt is independent with ADL and IADL, lives with a friend, has no insurance and pt will follow up at [facility].
HRSI specialist following.
D/C plan: home with his friend and follow up at [facility].
CM will follow with discharge plan updates as needed.
--- NOTE | 2024-07-07 15:03 | W.PN.NEPH.PH ---
Today's Communication / Plan
-
increase bicarb
Assessment/Plan
-
Assessment
Acute appendicitis
Elevated creatinine/ROBERTO
Metabolic acidosis
Proteinuria nephrotic range
Hematuria
Hypertension
Plan
follow BMP
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
increase bicarb
while HD is indicated, no emergent HD needs currently, but will likely need HD in the near future.
This is more of a logistical issue. He will need insurance if he is to do dialysis and transplant evaluation in the .
however, he is considering going back to [place] where his family (and 1 yr old dtr) is. He does not have to be on dialysis to return to [place], but would need to make the trip soon after dc.
should he start dialysis here, he would need OP HD arrangements in [place] before going which may take longer.
his aunt is coming tomorrow afternoon and they will make a plan by the weekend.
-
-
Date of Service: July 07, 2024
CC / HPI / ROS
-
Chief Complaint:
ROBERTO/CKD
History of Present Illness:
Creatinine up to 7.7
K better 5.2
mild acidosis
Hemodynamically stable on atenolol and amlodipine
Status post appendectomy 06/30/2024
Review of Systems:
Nonoliguric no chest pain or shortness of breath
no n/v
no other complaints
no dysuria
Labs
-
Labs:
WBC 6.8 10^3/uL (4.8-10.8) 07/07/24 05:53
RBC 3.59 10^6/uL (4.70-6.10) L 07/07/24 05:53
Hgb 11.1 g/dL (13.0-18.0) L 07/07/24 05:53
Hct 30.8 % (39.0-52.0) L 07/07/24 05:53
Plt Count 209 10^3/uL (130-400) 07/07/24 05:53
Sodium 138 mmol/L (135-145) 07/07/24 05:53
Potassium 5.2 mmol/L (3.5-5.1) H 07/07/24 05:53
Chloride 107 mmol/L (98-107) 07/07/24 05:53
Carbon Dioxide 19 mmol/L (22-30) L 07/07/24 05:53
BUN 90 mg/dl (9-20) H 07/07/24 05:53
Creatinine 7.7 mg/dL (0.7-1.3) H* 07/07/24 05:53
eGFR 9.08 07/07/24 05:53
Glucose 89 mg/dl (70-99) 07/07/24 05:53
Calcium 9.6 mg/dl (8.4-10.2) 07/07/24 05:53
Phosphorus 7.9 mg/dl (2.5-4.5) H 07/07/24 05:53
Albumin 4.1 g/dl (3.5-5.0) 06/29/24 15:16
Physical Exam
-
Vital Signs:
Vital Signs
Temp Pulse Resp BP Pulse Ox
98.5 F 68 18 138/72 100
07/07/24 15:02 07/07/24 15:02 07/07/24 15:02 07/07/24 15:02 07/07/24 15:02
Cardiovascular:: Regular rate and rhythm
Respiratory:: Bilateral: CTA
Lung Excursion:: Normal
Abdomen:: Nontender and Soft
Bowel Sounds:: Normal
Extremity Edema:: None: Bilateral:
[2024-07-07] MEDS: SODIUM BICARBONATE 1300 MG PO (19:42)
[2024-07-08 03:38] VITALS: BP 111/66
[2024-07-08 06:00] VITALS: BMI 21.0
[2024-07-08 06:22] LABS: Hemoglobin 10.5 g/dL (13.0-18.0); Mean Corpuscular Hgb 30.4 pg (27.0-31.0); Mean Platelet Volume 10.6 fL (7.4-10.4); Platelet Count 213 10^3/uL (130-400); Red Blood Cell Count 3.45 10^6/uL (4.70-6.10); Red Cell Dist. Width 11.7 % (11.5-14.5); White Blood Cell Count 6.5 10^3/uL (4.8-10.8)
[2024-07-08 06:48] LABS: Albumin 3.9 g/dl (3.5-5.0); Blood Urea Nitrogen 87 mg/dl (9-20); Calcium 9.7 mg/dl (8.4-10.2); Carbon Dioxide 21 mmol/L (22-30); Chloride 108 mmol/L (98-107); Estimated Creatinine Clearance 15 ml/min; Glucose 83 mg/dl (70-99); Phosphorus 8.9 mg/dl (2.5-4.5); Sodium 139 mmol/L (135-145); eGFR 9.08
[2024-07-08 07:03] VITALS: BP 113/72
[2024-07-08] MEDS: LOKELMA 10 GRAM PO (08:34)
[2024-07-08] MEDS: SODIUM BICARBONATE 1300 MG PO ×2 (08:35→20:59)
[2024-07-08] MEDS: NORVASC 10 MG PO (08:36)
[2024-07-08] MEDS: TENORMIN 50 MG PO (08:37)
--- NOTE | 2024-07-08 09:07 | W.PN.HOSP.TC ---
Today's Communication/Plan
-
Pending dialysis decision and discharge planning
Assessment / Plan
Assessment / Plan
Impression:
Who patient is a 28-year-old male with past medical history of hypertension. He is from [place] and did not have a regular primary care physician. He was taking triple regimen with atenolol thiazide and calcium channel jazmine to control blood
pressure. Denies any personal or family history of any kidney issues. A CT abdomen was done in the ER, consistent with acute appendicitis. There was also mild benign bilateral adrenal hyperplasia and diffuse thickening of bladder wall. In
addition the patient's GFR came back to be less than 15 with a creatinine of 7.7 for which workup of acute kidney injury versus chronic kidney disease was started.
Patient had laparoscopic appendectomy on June 30, 2024 and is recovering well. His workup for kidney disease is being followed up by nephrology. PEG negative, ANCA negative, complement levels normal. Urine analysis without any eosinophils but with
nephrotic range proteinuria.
Admitted for workup of elevated creatinine/ROBERTO, hyperkalemia, metabolic acidosis, nephrotic range proteinuria, hematuria and hypertension.
Nephrology suspect stage V kidney disease rather than acute kidney injury. Kidney biopsy unsuccessful.
Assessment/plan:
ROBERTO versus chronic kidney disease stage V
Unknown baseline.
As per the patient, never had any personal or family history of kidney issues
On presentation potassium was normal and bicarb was normal, developed metabolic acidosis, corrected with alkaline fluids
Nephrology consult appreciated----suspect chronic kidney disease rather than acute kidney injury, GFR less than 15, nephrotic range proteinuria, kidney biopsy pending
Patient is producing urine, but would require dialysis in near future, nephrology on board, suggested that he might need renal transplant as well and he needs to work on his insurance with the case supervisor.
workup of elevated creatinine/ROBERTO, hyperkalemia, metabolic acidosis, nephrotic range proteinuria, hematuria and hypertension
Attempted Ultrasound guided renal biopsy yesterday-unsuccessful because of kidney size
Patient's family is coming today to discuss discharge plan, as per Nephrology he would need outpatient hemodialysis arrangements in [place] if he decides to go which would take longer versus insurance issues in [place]
Hyperkalemia
Lokelma daily
Monitor potassium levels
Low potassium diet
Acute uncomplicated appendicitis
S/p laparoscopic appendectomy
Incisions healing well
Normocytic anemia.
Hemoglobin stable at 10
Continue to monitor
Hypertension.
Patient is on atenolol 50 mg daily and amlodipine 10 mg daily
Blood pressure stable
Continue to monitor
CODE STATUS: Full code
DVT prophylaxis: SCDs
Anticipated Discharge: Within 24 hours
Subjective/Interval History
-
Date of Service: July 08, 2024
No active issues.Family coming over today to discuss dialysis plan
Objective Data
-
Labs:
Laboratory Results
07/08/24
05:08
WBC 6.5
Hgb 10.5 L
Hct 30.0 L
Plt Count 213
Sodium 139
Potassium 5.0
Chloride 108 H
Carbon Dioxide 21 L
BUN 87 H
Creatinine 7.7 H*
Glucose 83
Calcium 9.7
Vital Signs:
Vital Signs
Temp Pulse Resp BP Pulse Ox
98.2 F 70 16 113/72 100
07/08/24 07:03 07/08/24 08:37 07/08/24 07:03 07/08/24 08:37 07/08/24 07:03
I&O
07/07/24 07/08/24 07/09/24
06:59 06:59 06:59
Intake Total 1200 / 1200 480 / 480
Output Total 1725 / 1725
Balance -525 / -525 480 / 480
Review of Systems
-
All other systems: Reviewed and negative
Physical Exam
-
General: Appears Chronically Ill and Other
HEENT: Other (Periorbital edema, pale)
Respiratory: Clear to Auscultation; Negative Wheezes, Rales or Rhonchi
Cardiac: Regular Rhythm and S1/S2
GI: Soft, Nontender, Nondistended and Normal Bowel Sounds
Musculoskeletal: No Clubbing, No Cyanosis and No Edema
Skin: Warm and Dry
Neuro: Awake, AO x 3 and Nonfocal/Grossly Intact
Psych: Calm
[2024-07-08 11:44] VITALS: BP 114/64
--- NOTE | 2024-07-08 13:25 | CM ---
CM following re: discharge planning.
Reviewed pt's chart, met with pt and pt's cousin Cici at bedside.
Per cousin Cici, she and the pt understand the situation and they are making an arrangement to get the pt back to [place] where he can get an appropriate treatment. Per cici, pt's spouse and daughter live in [place]. Per cici, pt is in a process of
obtaining his permanent resident card. Per Cici, she and pt's family members arranging flight to [place] and as soon as it arranged pt will fly back to [place].
HRSI specialist following.
D/C plan: return back to homeland country [place] with family and necessary treatment there.
CM will follow with discharge plan updates as needed.
[2024-07-08 15:43] VITALS: BP 133/77
--- NOTE | 2024-07-08 16:15 | W.PN.NEPH.PH ---
Today's Communication / Plan
-
see plan
Assessment/Plan
-
Assessment
Acute appendicitis
Elevated creatinine/ROBERTO
Metabolic acidosis
Proteinuria nephrotic range
Hematuria
Hypertension
Plan
cr remains high at 7.7
k is fair control
cont sodium bicarb for met acidosis
low K diet reviewed
BP stable
while HD is indicated, no emergent HD needs currently, but will likely need HD in the near future.
Due to complex situation of insurance and his stay in [facility], decision made to return to [place] in next few days
His Mom is coming tomorrow to meet
likely benefit from [facility] at d/c
d/w pt and cousin in detail
-
-
Date of Service: July 08, 2024
CC / HPI / ROS
-
Chief Complaint:
ROBERTO/CKD
History of Present Illness:
Creatinine up to 7.7
K better 5
mild acidosis
Hemodynamically stable on atenolol and amlodipine
Status post appendectomy 06/30/2024
Review of Systems:
Nonoliguric no chest pain or shortness of breath
no n/v
no other complaints
no dysuria
Labs
-
Labs:
WBC 6.5 10^3/uL (4.8-10.8) 07/08/24 05:08
RBC 3.45 10^6/uL (4.70-6.10) L 07/08/24 05:08
Hgb 10.5 g/dL (13.0-18.0) L 07/08/24 05:08
Hct 30.0 % (39.0-52.0) L 07/08/24 05:08
Plt Count 213 10^3/uL (130-400) 07/08/24 05:08
Sodium 139 mmol/L (135-145) 07/08/24 05:08
Potassium 5.0 mmol/L (3.5-5.1) 07/08/24 05:08
Chloride 108 mmol/L (98-107) H 07/08/24 05:08
Carbon Dioxide 21 mmol/L (22-30) L 07/08/24 05:08
BUN 87 mg/dl (9-20) H 07/08/24 05:08
Creatinine 7.7 mg/dL (0.7-1.3) H* 07/08/24 05:08
eGFR 9.08 07/08/24 05:08
Glucose 83 mg/dl (70-99) 07/08/24 05:08
Calcium 9.7 mg/dl (8.4-10.2) 07/08/24 05:08
Phosphorus 8.9 mg/dl (2.5-4.5) H 07/08/24 05:08
Albumin 3.9 g/dl (3.5-5.0) 07/08/24 05:08
Physical Exam
-
Vital Signs:
Vital Signs
Temp Pulse Resp BP Pulse Ox
98.0 F 67 18 133/77 100
07/08/24 15:43 07/08/24 15:43 07/08/24 15:43 07/08/24 15:43 07/08/24 15:43
Cardiovascular:: Regular rate and rhythm
Respiratory:: Bilateral: CTA
Lung Excursion:: Normal
Abdomen:: Nontender and Soft
Bowel Sounds:: Normal
Extremity Edema:: None: Bilateral:
Heredia Catheter: No
[2024-07-08 23:04] VITALS: BP 140/82
[2024-07-09 06:00] VITALS: BMI 20.9
[2024-07-09 07:00] VITALS: BP 129/78
[2024-07-09 07:55] LABS: Blood Urea Nitrogen 91 mg/dl (9-20); Calcium 9.8 mg/dl (8.4-10.2); Carbon Dioxide 21 mmol/L (22-30); Chloride 110 mmol/L (98-107); Estimated Creatinine Clearance 15 ml/min; Glucose 88 mg/dl (70-99); Potassium 5.1 mmol/L (3.5-5.1); Sodium 140 mmol/L (135-145); eGFR 9.37
[2024-07-09] MEDS: NORVASC 10 MG PO (08:07)
[2024-07-09] MEDS: TENORMIN 50 MG PO (08:07)
[2024-07-09] MEDS: LOKELMA 10 GRAM PO (08:08)
[2024-07-09] MEDS: SODIUM BICARBONATE 1300 MG PO (08:08)
--- NOTE | 2024-07-09 08:27 | W.PN.HOSP.TC ---
Today's Communication/Plan
-
Assessment / Plan
Assessment / Plan
28 male history of hypertension presenting with abdominal pain found to have acute appendicitis and was taken to the OR with surgery for lap appendectomy. However, was also found to have renal failure with a creatinine of 7.8 that came down to 7.4
and has been steady.
NAD
Scleral Anicteric
MMM
No JVD
CTABL
RRR, S1/S2
Soft, NT, ND, BS+
Warm, Dry
AAOx3
Calm
Acute kidney injury on chronic kidney disease stage IV versus progressive CKD stage IV with nephrotic range proteinuria
PEG negative
Complements normal
ASO negative
No urine eosinophil
Need to monitor urinary output closely - urinating well/normal
Avoid nephrotoxins hypotension
Fortunately does not require emergent hemodialysis but I do agree with nephrology that it is unlikely that he will be discharged from the hospital with out requiring hemodialysis
For renal biopsy, unfortunately bilateral kidneys were atrophic and unable to obtain significant sample size.
Nephrology has started having bedside discussions about initiating hemodialysis. However at this time a patient centered discussion was completed at bedside and he would like to return to [facility] on Thursday. His mom will arrive in country tomorrow
and then on Thursday they will fit the patient for. Already sent messages via flaveit to on-call nephrology to obtain final recommendations he would want to go home with some treatment for potassium.
Hyperkalemia to 5.0
Temporize, low K diet, Lokelma 10mg qd, Tele pack
Acute appendicitis
S/p lap appendectomy on 06/30
Hypertension
Continue amlodipine and atenolol
Normocytic anemia
Hemoglobin stable without evidence of acute active bleeding
Likely for DC today pending Nephrology final recs
Anticipated Discharge: Today
Subjective/Interval History
-
Date of Service: July 09, 2024
seen and exmained. no new ocmplaints. still urinating well
mom at bedside
cousin on her way to the hospital
still refuses hd here and would like to initiate in [place]
Objective Data
-
Labs:
Laboratory Results
07/09/24
07:27
Sodium 140
Potassium 5.1
Chloride 110 H
Carbon Dioxide 21 L
BUN 91 H
Creatinine 7.5 H*
Glucose 88
Calcium 9.8
Vital Signs:
Vital Signs
Temp Pulse Resp BP Pulse Ox
97.9 F 60 12 129/78 100
07/09/24 07:00 07/09/24 08:07 07/09/24 07:00 07/09/24 08:07 07/09/24 07:00
I&O
07/08/24 07/09/24 07/10/24
06:59 06:59 06:59
Intake Total 480 / 480 720 / 720
Balance 480 / 480 720 / 720
--- NOTE | 2024-07-09 10:05 | W.DCSUMMARY ---
Addendum entered and electronically signed by Loco Linares MD 07/09/24 14:16:
Sodium bicarb bID sent to the pharmacy
Lokelma QD changed to QOD and new order sent to pharmacy
Original Note:
Documented by User: Zoltan Krishna MD, Resident 07/08/24 16:38
Discharge Summary
Discharge Data
Date of Admission: 06/29/24
Date of Discharge: 07/08/24
-
Pending Results: No
Hospital Course
Discharging Physician :
Loco Linares
Disposition :
Home
Primary care physician :
None
Principal Discharge diagnosis :
Acute kidney injury on chronic kidney disease stage IV versus progressive chronic kidney disease stage IV with nephrotic range proteinuria with associated hyperkalemia and metabolic acidosis
Acute appendicitis s/p laparoscopic appendectomy
Chronic Discharge diagnosis :
Essential hypertension
Hospital Course :
Patient is a 28-year-old male with past medical history of hypertension. He is from [place] and did not have a regular primary care physician. He was taking triple regimen with atenolol thiazide and calcium channel jazmine to control blood
pressure. Denies any personal or family history of any kidney issues. A CT abdomen was done in the ER, consistent with acute appendicitis. Patient had laparoscopic appendectomy on June 30, 2024 and is recovering well.
There was also mild benign bilateral adrenal hyperplasia and diffuse thickening of bladder wall. In addition, the patient's GFR came back to be less than 15 with a creatinine of 7.7 for which workup of acute kidney injury versus chronic kidney
disease was started.
His workup for kidney disease shows PEG negative, ANCA negative, complement levels normal. Urine analysis without any eosinophils but with nephrotic range proteinuria.
Admitted for workup of elevated creatinine/ROBERTO, hyperkalemia, metabolic acidosis, nephrotic range proteinuria, hematuria and hypertension.
Nephrology suspect stage V kidney disease rather than acute kidney injury. Kidney biopsy unsuccessful.
ROBERTO versus chronic kidney disease stage V
Unknown baseline.
As per the patient, never had any personal or family history of kidney issues
Patient's creatinine remained elevated around 7 and above, hyperkalemia was being managed with Lokelma, for metabolic acidosis added sodium bicarb tablets
Patient had nephrotic range proteinuria, hematuria, hypertension, hyperkalemia and metabolic acidosis
Ultrasound-guided renal biopsy attempted unsuccessful
No emergent need of hemodialysis, but would need dialysis in near future
Is a candidate for renal transplant evaluation
Patient made decision to pursue further workup in [place]
Hyperkalemia
Lokelma daily
Repeat BMP in less than a week on outpatient basis and visit PCP
Acute uncomplicated appendicitis
Laparoscopic appendectomy done on 06/30/2024
Recovering well
Normocytic anemia.
Hemoglobin stable at 10
Hypertension.
Patient is on atenolol 50 mg daily and amlodipine 10 mg daily
Blood pressure stable
Important imaging findings :
Abdominal/pelvis CT 06/29/2024
IMPRESSION: Findings suggestion acute appendicitis. No evidence of perforation or abscess formation.
Findings suggestion benign bilateral adrenal hyperplasia
Moderate fecal material throughout the colon.
Mild diffuse bladder wall thickening. This can be seen with cystitis or bladder outlet obstruction.
Procedure findings :
Preliminary ultrasound was performed. This showed atrophic changes of both kidneys, with small size of the kidneys and marked increased cortical echogenicity. The renal margins are somewhat difficult to visualize and there was superior position of
both kidneys with overlying rib shadows. The right kidney was seen to slightly better advantage. Next, 10 mL 1% lidocaine was administered for local anesthesia. Then under ultrasound guidance, 19-gauge introducer needle was advanced to the lower
pole of the right kidney using tangential technique. There was suboptimal visualization of the distal aspect of the introducer needle. The position within the lower pole of the right kidney cannot be definitively confirmed at sonography.
Repositioning was attempted under sonography and again distal aspect of the introducer needle was not well seen. Satisfactory position for safe percutaneous biopsy procedure could not be obtained. The introducer needle was therefore removed.
Hemostasis was obtained at the access site with no compression. Sterile dressing was applied. There were no immediate complications.
Medications: Versed 1.5 mg, fentanyl 100 mcg.
IMPRESSION: Unsuccessful attempted ultrasound guided renal biopsy as described. 07/08/2024
Discharge Plan
-
Patient Disposition: Home (Routine Discharge)
Discharge Diagnosis/Procedures: Acute kidney injury on chronic kidney disease stage IV versus progressive chronic kidney disease stage IV with nephrotic range proteinuria with associated hyperkalemia and metabolic acidosis
Acute appendicitis s/p laparoscopic appendectomy
Condition: Fair
Diet: Low Sodium and No added salt
Activity: No strenuous activity
Additional Activity: Do not lift over 15lbs for 2 weeks
Bathing Restrictions: OK to Shower
Blood Work: BMP prescription provided, forward results to PCP
Instructions: Appendectomy - Discharge instructions
Referrals:
True Medina MD [Active] - As needed
Carmelo Lucia MD [Active] - in two to four weeks
Prescriptions:
New
amlodipine 10 mg Tablet
10 mg PO DAILY 30 Days Qty: 30 0RF
Lokelma 10 gram Powder In Packet
10 g PO DAILY 30 Days Qty: 30 1RF
Continued
acetaminophen [Tylenol] 325 mg Tablet
650 mg PO Q6HPRN PRN (Reason: mild pain)
atenolol 50 mg Tablet
50 mg PO DAILY Qty: 0 0RF
Discontinued
felodipine 5 mg Tablet Extended Release 24 Hr
5 mg PO DAILY
Clortailona 12.5 mg tablet
12.5 mg PO DAILY
Discharge Orders:
Discharge Patient (As Directed); Ordered 07/09/24
Ordered By: Loco Linares
Discharge Date and Time
Print Language: CENTRAL AFRICAN

Documented by User: Loco Linares MD 07/09/24 10:06
Discharge Summary
Discharge Data
Date of Admission: 06/29/24
Date of Discharge: 07/09/24
Discharge Plan
-
Patient Disposition: Home (Routine Discharge)
Discharge Diagnosis/Procedures: Acute kidney injury on chronic kidney disease stage IV versus progressive chronic kidney disease stage IV with nephrotic range proteinuria with associated hyperkalemia and metabolic acidosis
Acute appendicitis s/p laparoscopic appendectomy
Condition: Fair
Diet: Low Sodium and No added salt
Activity: No strenuous activity
Additional Activity: Do not lift over 15lbs for 2 weeks
Bathing Restrictions: OK to Shower
Blood Work: BMP prescription provided, forward results to PCP
Instructions: Appendectomy - Discharge instructions
Referrals:
True Medina MD [Active] - As needed
Carmelo Lucia MD [Active] - in two to four weeks
Prescriptions:
New
amlodipine 10 mg Tablet
10 mg PO DAILY 30 Days Qty: 30 0RF
Lokelma 10 gram Powder In Packet
10 g PO DAILY 30 Days Qty: 30 1RF
Continued
acetaminophen [Tylenol] 325 mg Tablet
650 mg PO Q6HPRN PRN (Reason: mild pain)
atenolol 50 mg Tablet
50 mg PO DAILY Qty: 0 0RF
Discontinued
felodipine 5 mg Tablet Extended Release 24 Hr
5 mg PO DAILY
Clortailona 12.5 mg tablet
12.5 mg PO DAILY
Discharge Orders:
Discharge Patient (As Directed); Ordered 07/09/24
Ordered By: Loco Linares
Discharge Date and Time
Print Language: CENTRAL AFRICAN
--- NOTE | 2024-07-09 10:48 | W.PN.NEPH.PH ---
Today's Communication / Plan
-
ok to d/c
Assessment/Plan
-
Assessment
Acute appendicitis
Elevated creatinine/ROBERTO
Metabolic acidosis
Proteinuria nephrotic range
Hematuria
Hypertension
Plan
cr remains high at 7.5
k is fair control, [facility] at d/c
cont sodium bicarb for met acidosis
low K diet reviewed
BP stable , cotn same meds
He is planning to return [place] in 2-3days , he should follow nephrology BRIAN if not get admitted to the hospital
d/w pt and cousin in detail
-
-
Date of Service: July 09, 2024
CC / HPI / ROS
-
Chief Complaint:
ROBERTO/CKD
History of Present Illness:
Creatinine up to 7.5
K better 5
mild acidosis
Hemodynamically stable on atenolol and amlodipine
Status post appendectomy 06/30/2024
Review of Systems:
Nonoliguric no chest pain or shortness of breath
no n/v
no other complaints
no dysuria
Labs
-
Labs:
WBC 6.5 10^3/uL (4.8-10.8) 07/08/24 05:08
RBC 3.45 10^6/uL (4.70-6.10) L 07/08/24 05:08
Hgb 10.5 g/dL (13.0-18.0) L 07/08/24 05:08
Hct 30.0 % (39.0-52.0) L 07/08/24 05:08
Plt Count 213 10^3/uL (130-400) 07/08/24 05:08
Sodium 140 mmol/L (135-145) 07/09/24 07:27
Potassium 5.1 mmol/L (3.5-5.1) 07/09/24 07:27
Chloride 110 mmol/L (98-107) H 07/09/24 07:27
Carbon Dioxide 21 mmol/L (22-30) L 07/09/24 07:27
BUN 91 mg/dl (9-20) H 07/09/24 07:27
Creatinine 7.5 mg/dL (0.7-1.3) H* 07/09/24 07:27
eGFR 9.37 07/09/24 07:27
Glucose 88 mg/dl (70-99) 07/09/24 07:27
Calcium 9.8 mg/dl (8.4-10.2) 07/09/24 07:27
Phosphorus 8.9 mg/dl (2.5-4.5) H 07/08/24 05:08
Albumin 3.9 g/dl (3.5-5.0) 07/08/24 05:08
Physical Exam
-
Vital Signs:
Vital Signs
Temp Pulse Resp BP Pulse Ox
97.9 F 60 12 129/78 100
07/09/24 07:00 07/09/24 08:07 07/09/24 07:00 07/09/24 08:07 07/09/24 10:11
Cardiovascular:: Regular rate and rhythm
Respiratory:: Bilateral: CTA
Lung Excursion:: Normal
Bowel Sounds:: Normal
Extremity Edema:: None: Bilateral:
Heredia Catheter: No
[2024-07-09 11:44] VITALS: BP 116/67
--- NOTE | 2024-07-09 12:58 | CM ---
Patient has been medically cleared for discharge to his cousin's home with no additional skilled services. Cousin will transport patient to her home. Patient will return to [place] on Thursday.
== END 2024-07-09 14:17 | disposition home or self-care (01) | DRG 398 ==
LOC: 2 NORTH 19:51
PROVIDERS: General Practice; Physician Assistant; Specialist; ADMITTING PHYSICIAN Internal Medicine; ATTENDING PHYSICIAN Hospitalist; CONSULT PHYSICIAN Specialist; CONSULT PHYSICIAN Surgery; EMERGENCY PHYSICIAN Emergency Medicine
PROC: 0DTJ4ZZ Resection of Appendix, Percutaneous Endoscopic Approach (ICD-10-PCS; 2024-06-30)
DX: K35.80 Unspecified acute appendicitis (principal); E87.20 Acidosis, unspecified; I12.0 Hypertensive chronic kidney disease with stage 5 chronic kidney disease or end stage renal disease; N17.9 Acute kidney failure, unspecified; N18.5 Chronic kidney disease, stage 5; K66.0 Peritoneal adhesions (postprocedural) (postinfection); E87.5 Hyperkalemia; D63.1 Anemia in chronic kidney disease; E27.8 Other specified disorders of adrenal gland; Z79.899 Other long term (current) drug therapy; Z88.0 Allergy status to penicillin
CPT/HCPCS: 88304; 50200; 74176; 76942; 80048; 80053; 80069; 80306; 81003; 81015; 81099; 82550; 82570; 82962; 83516; 83690; 83735; 84100; 84132; 84156; 84300; 85025; 85027; 85610; 86038; 86063; 86160; 87086; 93005; 96361; 96365; 96374; 99152; 99153; 99285; 99406; C1776